=== PATIENT | male | born 1990 | race Hispanic/Latino ===

== ENCOUNTER 2020-12-29 01:08 | Inpatient (IN) | payer OTHER ==
[2020-12-29] VITALS (79 sets, daily range): BP systolic 110–154; BP diastolic 64–99
[~2020-12-29] VITALS: Ht 175.3 cm; Wt 84.0 kg
[2020-12-29] MEDS ORDERED: FENTANYL CITRATE PF 50 MCG/1 ML 2ML VIAL ONE (01:18)
[2020-12-29] MEDS ORDERED: IOHEXOL-350 50ML VIAL IV ONE (01:18)
[2020-12-29] MEDS ORDERED: MIDAZOLAM HCL 1 MG/ML 2ML VIAL ONE (01:18)
[2020-12-29] MEDS ORDERED: LIDOCAINE HCL 2% 20ML ONE ×2 (01:18→02:19)
[2020-12-29] MEDS ORDERED: HEPARIN SODIUM 1000UNIT/ML 10ML VIAL ONE (01:18)
[2020-12-29] MEDS ORDERED: IOHEXOL-350 75 ML VIAL IV ONE (01:18)
[2020-12-29] MEDS ORDERED: NITROGLYCERIN 2 MG/VIAL VIAL IV ONE (01:19)
[2020-12-29] MEDS ORDERED: BIVALIRUDIN 250 MG/VIAL IV ONE (01:41)
[2020-12-29] MEDS ORDERED: DEXTROSE 50%-WATER 50 ML DISP.SYRIN IV PRN (03:15)
[2020-12-29] MEDS ORDERED: SODIUM CHLORIDE 0.9% 1000ML 1,000 ML IV SCH (03:15)
[2020-12-29] MEDS ORDERED: ONDANSETRON HCL 4 MG/2 ML VIAL IV PRN (03:15)
[2020-12-29] MEDS ORDERED: GLUCAGON 1MG KIT 1 MG ML IM PRN (03:15)
[2020-12-29] MEDS ORDERED: MORPHINE SULFATE 2 MG/ML 1ML SYG IVP PRN (04:15)
[2020-12-29 04:35] LABS: BASOPHILS % (AUTO) 0.1 % (0.0-5.0); HEMATOCRIT 44.1 % (42-54); LYMPHOCYTES % (AUTO) 12.7 % (21.0-51.0); MEAN CORPUSCULAR HEMOGLOBIN 30.8 pg (27.0-33.0); MEAN CORPUSCULAR HGB CONC 34.7 g/dL (32.0-36.0); MEAN CORPUSCULAR VOLUME 88.9 fL (79-99); MONOCYTES % (AUTO) 4.2 % (3.0-13.0); NEUTROPHILS % (AUTO) 82.6 % (40.0-77.0); PLATELET COUNT (AUTO) 295 K/uL (130-400); RED BLOOD CELL COUNT(AUTO) 4.96 MIL/uL (4.50-6.20); RED CELL DISTRIBUTION WIDTH 12.4 % (11.0-15.5); WHITE BLOOD COUNT (AUTO) 15.4 K/uL (4.8-10.8)
[2020-12-29] MEDS ORDERED: MORPHINE SULFATE 2 MG/ML 1ML SYG ONE (04:46)
[2020-12-29 04:55] LABS: INR 1.05 (0.85-1.15); PROTHROMBIN TIME 10.9 SEC (9.6-11.6)
[2020-12-29 05:03] LABS: B-TYPE NATRIURETIC PEPTIDE 16 pg/mL (0-100)
[2020-12-29 05:10] LABS: ALBUMIN 3.4 g/dL (3.5-5.0); BILIRUBIN,TOTAL 0.5 mg/dL (0.2-1.0); MAGNESIUM 1.8 mg/dL (1.80-2.40); POTASSIUM 4.1 mmol/L (3.5-5.1); TOTAL PROTEIN, SERUM 6.2 g/dL (6.0-8.3)
[2020-12-29 05:26] LABS: CREATININE 0.9 mg/dL (0.5-1.5)
[2020-12-29 05:33] LABS: TROPONIN I 25.5 ng/mL (0.00-0.06)
[2020-12-29] MEDS: SODIUM CHLORIDE 0.9% 1000ML 1,000 ML IV SCH ×3 (05:38→15:59)
[2020-12-29 07:13] LABS: BASOPHILS % (AUTO) 0.1 % (0.0-5.0); EOSINOPHILS % (AUTO) 0.1 % (0.0-8.0); HEMATOCRIT 40.5 % (42-54); LYMPHOCYTES % (AUTO) 13.2 % (21.0-51.0); MEAN CORPUSCULAR HEMOGLOBIN 30.9 pg (27.0-33.0); MEAN CORPUSCULAR HGB CONC 35.1 g/dL (32.0-36.0); MEAN CORPUSCULAR VOLUME 88.2 fL (79-99); MONOCYTES % (AUTO) 7.6 % (3.0-13.0); NEUTROPHILS % (AUTO) 78.5 % (40.0-77.0); PLATELET COUNT (AUTO) 296 K/uL (130-400); RED BLOOD CELL COUNT(AUTO) 4.59 MIL/uL (4.50-6.20); RED CELL DISTRIBUTION WIDTH 12.4 % (11.0-15.5); WHITE BLOOD COUNT (AUTO) 15.4 K/uL (4.8-10.8)
[2020-12-29 07:30] LABS: HEMOGLOBIN A1C 5.9 % (4.0-6.0)
[2020-12-29] MEDS: INSULIN HUMULIN R 100 UNIT/ML 3ML SQ SCH ×4 (07:30→20:24)
[2020-12-29 07:46] LABS: ALBUMIN 3.1 g/dL (3.5-5.0); BILIRUBIN,TOTAL 0.6 mg/dL (0.2-1.0); CREATININE 0.7 mg/dL (0.5-1.5); MAGNESIUM 1.8 mg/dL (1.80-2.40); POTASSIUM 3.6 mmol/L (3.5-5.1); THYROID STIMULATING HORMONE 0.36 uIU/mL (0.36-3.74); TOTAL PROTEIN, SERUM 5.4 g/dL (6.0-8.3)
[2020-12-29] MEDS: FAMOTIDINE/PF 20 MG/2 ML VIAL IV SCH ×2 (08:57→20:23)
[2020-12-29] MEDS ORDERED: MORPHINE SULFATE 2 MG/ML 1ML SYG IM PRN (10:00)
[2020-12-29] MEDS ORDERED: HEPARIN 25000 UNITS/250 ML D5W 250 ML IV SCH (11:10)
[2020-12-29] MEDS ORDERED: PHARMACY COMMUNICATION MISC SCH (11:45)
[2020-12-29] MEDS ORDERED: D10W IJ SCH ×2 (11:45)
[2020-12-29] MEDS ORDERED: HEPARIN IJ SCH ×2 (11:45)
[2020-12-29] MEDS: ACETAMINOPHEN EXTRA STRENGTH 500 MG TABLET PO PRN ×2 (11:53→19:25)
[2020-12-29 13:25] LABS: PARTIAL THROMBOPLASTIN TIME 46.3 SEC (26.3-35.5); PROTHROMBIN TIME 10.4 SEC (9.6-11.6)
[2020-12-29] MEDS: CYCLOBENZAPRINE HCL 10 MG TABLET PO SCH ×2 (14:08→20:23)
[2020-12-29 18:35] LABS: HEMATOCRIT 38.8 % (42-54)
[2020-12-29 18:49] LABS: PARTIAL THROMBOPLASTIN TIME 50.4 SEC (26.3-35.5); PROTHROMBIN TIME 10.4 SEC (9.6-11.6)
[2020-12-29] MEDS ORDERED: HEPARIN 25000 UNITS/250 ML D5W 250 ML IV ONE (19:11)
[2020-12-29] MEDS: ATORVASTATIN CALCIUM 20 MG TABLET PO SCH (20:23)
[2020-12-29] MEDS: METOPROLOL TARTRATE 25 MG TAB PO SCH (20:24)
[2020-12-29] MEDS: LISINOPRIL 5 MG TABLET PO SCH (20:24)
[2020-12-30] VITALS (53 sets, daily range): BP systolic 102–127; BP diastolic 49–82
[2020-12-30] MEDS: ACETAMINOPHEN EXTRA STRENGTH 500 MG TABLET PO PRN (03:22)
[2020-12-30 03:35] LABS: BASOPHILS % (AUTO) 0.2 % (0.0-5.0); EOSINOPHILS % (AUTO) 0.4 % (0.0-8.0); HEMATOCRIT 42.8 % (42-54); LYMPHOCYTES % (AUTO) 15.3 % (21.0-51.0); MEAN CORPUSCULAR HGB CONC 33.2 g/dL (32.0-36.0); MEAN CORPUSCULAR VOLUME 90.3 fL (79-99); MONOCYTES % (AUTO) 9.5 % (3.0-13.0); NEUTROPHILS % (AUTO) 74.3 % (40.0-77.0); PLATELET COUNT (AUTO) 248 K/uL (130-400); RED BLOOD CELL COUNT(AUTO) 4.74 MIL/uL (4.50-6.20); RED CELL DISTRIBUTION WIDTH 12.5 % (11.0-15.5); WHITE BLOOD COUNT (AUTO) 15.1 K/uL (4.8-10.8)
[2020-12-30 03:51] LABS: ALBUMIN 3.3 g/dL (3.5-5.0); BILIRUBIN,TOTAL 0.3 mg/dL (0.2-1.0); CREATININE 0.7 mg/dL (0.5-1.5); POTASSIUM 3.9 mmol/L (3.5-5.1); TOTAL PROTEIN, SERUM 6.2 g/dL (6.0-8.3)
[2020-12-30] MEDS: INSULIN HUMULIN R 100 UNIT/ML 3ML SQ SCH ×4 (07:30→21:00)
[2020-12-30] MEDS: LISINOPRIL 5 MG TABLET PO SCH ×2 (09:00→21:21)
[2020-12-30] MEDS: METOPROLOL TARTRATE 25 MG TAB PO SCH ×3 (09:00→21:20)
[2020-12-30] MEDS: FAMOTIDINE/PF 20 MG/2 ML VIAL IV SCH ×2 (09:25→21:19)
[2020-12-30] MEDS: CYCLOBENZAPRINE HCL 10 MG TABLET PO SCH (09:25)
[2020-12-30] MEDS: ASPIRIN 81MG TAB.CHEW PO SCH (09:25)
[2020-12-30] MEDS ORDERED: ACET-2247 PO (12:06)
[2020-12-30] MEDS: SODIUM CHLORIDE 0.9% 1000ML 1,000 ML IV SCH (17:05)
[2020-12-30] MEDS: HEPARIN 25000 UNITS/250 ML D5W 250 ML IV SCH (17:09)
[2020-12-30 17:50] LABS: INR 0.98 (0.85-1.15); PARTIAL THROMBOPLASTIN TIME 42.1 SEC (26.3-35.5); PROTHROMBIN TIME 10.2 SEC (9.6-11.6)
[2020-12-30] MEDS: ATORVASTATIN CALCIUM 20 MG TABLET PO SCH (21:19)
[2020-12-30] MEDS: HEPARIN SODIUM 5000 UNIT/ML 25,000 UNIT in DEXTROSE 5%-WATER 495 ML IJ SCH (21:32)
[2020-12-30] MEDS: CYCLOBENZAPRINE HCL 10 MG TABLET PO PRN (23:53)
[2020-12-31] VITALS (71 sets, daily range): BP systolic 91–125; BP diastolic 50–80
[2020-12-31 00:15] LABS: INR 0.98 (0.85-1.15); PARTIAL THROMBOPLASTIN TIME 52.8 SEC (26.3-35.5); PROTHROMBIN TIME 10.2 SEC (9.6-11.6)
[2020-12-31] MEDS ORDERED: NITROGLYCERIN 0.4 MG SL TAB SL ONE (00:18)
[2020-12-31] MEDS: NITROGLYCERIN 0.4 MG SL TAB SL PRN ×2 (01:19→10:03)
[2020-12-31] MEDS: SODIUM CHLORIDE 0.9% 1000ML 1,000 ML IV SCH ×2 (04:37→22:55)
[2020-12-31 05:57] LABS: BASOPHILS % (AUTO) 0.3 % (0.0-5.0); EOSINOPHILS % (AUTO) 0.6 % (0.0-8.0); HEMATOCRIT 38.1 % (42-54); LYMPHOCYTES % (AUTO) 20.6 % (21.0-51.0); MEAN CORPUSCULAR HEMOGLOBIN 30.6 pg (27.0-33.0); MEAN CORPUSCULAR HGB CONC 33.9 g/dL (32.0-36.0); MEAN CORPUSCULAR VOLUME 90.3 fL (79-99); MONOCYTES % (AUTO) 11.7 % (3.0-13.0); NEUTROPHILS % (AUTO) 66.4 % (40.0-77.0); PLATELET COUNT (AUTO) 181 K/uL (130-400); RED BLOOD CELL COUNT(AUTO) 4.22 MIL/uL (4.50-6.20); RED CELL DISTRIBUTION WIDTH 12.6 % (11.0-15.5); WHITE BLOOD COUNT (AUTO) 15.5 K/uL (4.8-10.8)
[2020-12-31 06:11] LABS: ALBUMIN 2.9 g/dL (3.5-5.0); BILIRUBIN,TOTAL 0.7 mg/dL (0.2-1.0); CREATININE 0.7 mg/dL (0.5-1.5); INR 0.99 (0.85-1.15); PARTIAL THROMBOPLASTIN TIME 57.9 SEC (26.3-35.5); POTASSIUM 3.7 mmol/L (3.5-5.1); PROTHROMBIN TIME 10.3 SEC (9.6-11.6)
[2020-12-31] MEDS: INSULIN HUMULIN R 100 UNIT/ML 3ML SQ SCH ×4 (06:28→20:21)
[2020-12-31] MEDS: FAMOTIDINE/PF 20 MG/2 ML VIAL IV SCH ×2 (08:54→21:02)
[2020-12-31] MEDS: LISINOPRIL 5 MG TABLET PO SCH ×2 (08:56→21:02)
[2020-12-31] MEDS: METOPROLOL TARTRATE 25 MG TAB PO SCH ×2 (08:56→21:02)
[2020-12-31] MEDS: ASPIRIN 81MG TAB.CHEW PO SCH (08:56)
[2020-12-31] MEDS: ATORVASTATIN CALCIUM 20 MG TABLET PO SCH (21:02)
[2020-12-31] MEDS: HEPARIN SODIUM 5000 UNIT/ML 25,000 UNIT in DEXTROSE 5%-WATER 495 ML IJ SCH (22:12)
[2021-01-01] VITALS (35 sets, daily range): BP systolic 87–170; BP diastolic 46–73
[2021-01-01] MEDS: CYCLOBENZAPRINE HCL 10 MG TABLET PO PRN ×2 (03:11→06:19)
[2021-01-01] MEDS: HEPARIN 25000 UNITS/250 ML D5W 250 ML IV SCH (03:14)
[2021-01-01 04:09] LABS: ABG BASE EXCESS -0.7 mmol/L (-2.0-3.0); ABG HCO3 23.3 mmol/L (21.0-28.0); ABG OXYGEN SATURATION 95.3 % (95.0-99.0); ABG PCO2 37 mmHg (35-48)
[2021-01-01] MEDS: INSULIN HUMULIN R 100 UNIT/ML 3ML SQ SCH ×4 (06:32→20:52)
[2021-01-01 06:44] LABS: BASOPHILS % (AUTO) 0.2 % (0.0-5.0); EOSINOPHILS % (AUTO) 1.4 % (0.0-8.0); HEMATOCRIT 39.1 % (42-54); LYMPHOCYTES % (AUTO) 22.2 % (21.0-51.0); MEAN CORPUSCULAR HGB CONC 32.5 g/dL (32.0-36.0); MEAN CORPUSCULAR VOLUME 92.4 fL (79-99); MONOCYTES % (AUTO) 10.1 % (3.0-13.0); NEUTROPHILS % (AUTO) 65.5 % (40.0-77.0); PLATELET COUNT (AUTO) 187 K/uL (130-400); RED BLOOD CELL COUNT(AUTO) 4.23 MIL/uL (4.50-6.20); RED CELL DISTRIBUTION WIDTH 12.4 % (11.0-15.5); WHITE BLOOD COUNT (AUTO) 14.5 K/uL (4.8-10.8)
[2021-01-01 06:55] LABS: INR 0.98 (0.85-1.15); PROTHROMBIN TIME 10.2 SEC (9.6-11.6)
[2021-01-01 07:11] LABS: ALBUMIN 2.9 g/dL (3.5-5.0); BILIRUBIN,TOTAL 0.8 mg/dL (0.2-1.0); CREATININE 0.7 mg/dL (0.5-1.5); POTASSIUM 4.4 mmol/L (3.5-5.1); TOTAL PROTEIN, SERUM 6.5 g/dL (6.0-8.3)
[2021-01-01 07:12] LABS: HEMOGLOBIN A1C 5.6 % (4.0-6.0)
[2021-01-01 07:20] LABS: B-TYPE NATRIURETIC PEPTIDE 122 pg/mL (0-100)
[2021-01-01] MEDS: LISINOPRIL 5 MG TABLET PO SCH (09:00)
[2021-01-01] MEDS: ASPIRIN 81MG TAB.CHEW PO SCH (09:00)
[2021-01-01] MEDS ORDERED: METOPROLOL TARTRATE 25 MG TAB PO SCH (09:00)
[2021-01-01] MEDS: FAMOTIDINE/PF 20 MG/2 ML VIAL IV SCH ×3 (10:10→21:00)
[2021-01-01] MEDS ORDERED: CEFAZOLIN SODIUM 1 GM VIAL IVP PRN (10:15)
[2021-01-01] MEDS ORDERED: AMINOCAPROIC ACID 15,000 MG in SODIUM CHLORIDE 0.9% 500ML 420 ML IV PRN (10:45)
[2021-01-01] MEDS ORDERED: EPINEPHRINE 10 MG in SODIUM CHLORIDE 0.9% 240 ML IV PRN (10:45)
[2021-01-01] MEDS ORDERED: NOREPINEPHRINE BITARTRATE 8 MG in DEXTROSE 5%-WATER 250 ML IV PRN (10:45)
[2021-01-01] MEDS ORDERED: LIDOCAINE PF 2% 5ML ABBOJECT ONE (12:56)
[2021-01-01] MEDS ORDERED: EPINEPHRINE 1 MG/ML AMPULE ONE (12:56)
[2021-01-01] MEDS ORDERED: ESMOLOL HCL 10 MG/ML 10 ML VIAL ONE (12:56)
[2021-01-01] MEDS ORDERED: HEPARIN SODIUM 1000UNIT/ML 10ML VIAL ONE ×3 (12:56→14:01)
[2021-01-01] MEDS ORDERED: FENTANYL CITRATE PF 50 MCG/1 ML 20ML VIAL IJ ONE (12:57)
[2021-01-01] MEDS ORDERED: MIDAZOLAM HCL 1 MG/ML 2ML VIAL ONE (12:57)
[2021-01-01] MEDS ORDERED: PROPOFOL 10 MG/ML 20ML VIAL IV ONE (12:57)
[2021-01-01] MEDS ORDERED: AMINOCAPROIC ACID 250 MG/ML 20 ML VIAL ONE (12:57)
[2021-01-01] MEDS ORDERED: NOREPINEPHRINE BITARTRATE 1 MG/1 ML ML IV ONE (12:57)
[2021-01-01] MEDS ORDERED: ROCURONIUM 10MG/1ML SYR 10 MG/ML ML ONE (12:57)
[2021-01-01] MEDS ORDERED: NITROGLYCERIN 50 MG/D5% WATER 1 BOT ONE (12:58)
[2021-01-01] MEDS ORDERED: KETAMINE 50MG/ML SYRINGE 50 MG/ML DISP.SYRIN IV ONE (12:58)
[2021-01-01] MEDS ORDERED: CEFAZOLIN SODIUM 1 GM VIAL ONE ×2 (13:41→13:55)
[2021-01-01 13:51] LABS: ABG BASE EXCESS -3.8 mmol/L (-2.0-3.0); ABG HCO3 21.1 mmol/L (21.0-28.0); ABG OXYGEN SATURATION 98.9 % (95.0-99.0); ABG PCO2 38 mmHg (35-48)
[2021-01-01] MEDS ORDERED: PAPAVERINE HCL 30 MG/ML 2ML VIAL ONE (13:56)
[2021-01-01] MEDS ORDERED: OCTYL 2-CYANOACRYLATE 1 EACH TP ONE (13:56)
[2021-01-01] MEDS ORDERED: CITRIC ACID/SODIUM CITRATE 30 ML UDCUP ONE (15:00)
[2021-01-01 15:14] LABS: ABG BASE EXCESS -2.5 mmol/L (-2.0-3.0); ABG HCO3 21.8 mmol/L (21.0-28.0); ABG PCO2 36 mmHg (35-48)
[2021-01-01] MEDS ORDERED: VASOPRESSIN 20 UNITS/ML 1ML VIAL ONE (15:23)
[2021-01-01] MEDS ORDERED: PROTAMINE SULFATE 10 MG/ML 25ML VIAL IV ONE (15:37)
[2021-01-01 15:49] LABS: ABG BASE EXCESS -4.9 mmol/L (-2.0-3.0); ABG OXYGEN SATURATION 98.9 % (95.0-99.0); ABG PCO2 36 mmHg (35-48)
[2021-01-01] MEDS ORDERED: EPHEDRINE SULFATE 50 MG/ML AMPULE ONE (16:15)
[2021-01-01 16:40] LABS: ABG BASE EXCESS -0.6 mmol/L (-2.0-3.0); ABG HCO3 24.6 mmol/L (21.0-28.0); ABG OXYGEN SATURATION 98.1 % (95.0-99.0); ABG PCO2 43 mmHg (35-48)
[2021-01-01] MEDS ORDERED: MORPHINE SULFATE 2 MG/ML 1ML SYG IM SCH (16:45)
[2021-01-01] MEDS ORDERED: INSULIN REGULAR, HUMAN 3ML 100 UNIT in SODIUM CHLORIDE 0.9% 99 ML IV SCH ×2 (17:00)
[2021-01-01] MEDS ORDERED: MAGNESIUM 2GM PREMIX 50ML 50 ML IV PRN (17:00)
[2021-01-01] MEDS ORDERED: MORPHINE SULFATE 2 MG/ML 1ML SYG IV PRN (17:00)
[2021-01-01] MEDS ORDERED: FENTANYL 2500MCG+NS 250ML 250 ML IV SCH (17:00)
[2021-01-01] MEDS ORDERED: FENTANYL CITRATE PF 50 MCG/1 ML 2ML VIAL IVP ONE (17:00)
[2021-01-01] MEDS ORDERED: DEXTROSE 50%-WATER 50 ML DISP.SYRIN IV PRN (17:00)
[2021-01-01] MEDS ORDERED: MORPHINE SULFATE 4 MG/1ML SYG IV PRN (17:00)
[2021-01-01] MEDS ORDERED: NITROGLYCERIN 50 MG/D5% WATER 250 BOT IV SCH (17:00)
[2021-01-01] MEDS ORDERED: ACETAMINOPHEN 650 MG SUPPOSITORY RC PRN (17:00)
[2021-01-01] MEDS ORDERED: NOREPINEPHRINE 4MG/NS 250ML 250 ML IV PRN (17:00)
[2021-01-01] MEDS ORDERED: AMINOCAPROIC ACID 15,000 MG in SODIUM CHLORIDE 0.9% 250 ML IV SCH (17:00)
[2021-01-01] MEDS ORDERED: EPINEPHRINE 10 MG in DEXTROSE 5%-WATER 250 ML IV PRN (17:00)
[2021-01-01] MEDS ORDERED: ALBUMIN (HUMAN) 5% 250 ML IV PRN (17:00)
[2021-01-01] MEDS ORDERED: SODIUM CHLORIDE 0.9% 1000ML 1,000 ML IV SCH (17:00)
[2021-01-01] MEDS ORDERED: PROPOFOL 1000 MG/100 ML 100 ML IV PRN (17:00)
[2021-01-01] MEDS ORDERED: SODIUM CHLORIDE 0.9% 500ML 500 ML IV SCH (17:00)
[2021-01-01] MEDS ORDERED: GLUCAGON 1MG KIT 1 MG ML IM PRN (17:00)
[2021-01-01] MEDS ORDERED: ONDANSETRON HCL 4 MG/2 ML VIAL IV PRN (17:00)
[2021-01-01] MEDS ORDERED: POTASSIUM PHOS 15 mMOL+NS250ML 250 ML IV PRN (17:00)
[2021-01-01] MEDS ORDERED: SODIUM CHLORIDE 0.9% 10 ML VIAL IVP PRN (17:00)
[2021-01-01 17:12] LABS: HEMATOCRIT 29.2 % (42-54); MEAN CORPUSCULAR HEMOGLOBIN 30.5 pg (27.0-33.0); MEAN CORPUSCULAR HGB CONC 33.6 g/dL (32.0-36.0); RED BLOOD CELL COUNT(AUTO) 3.21 MIL/uL (4.50-6.20); RED CELL DISTRIBUTION WIDTH 12.2 % (11.0-15.5); WHITE BLOOD COUNT (AUTO) 27.8 K/uL (4.8-10.8)
[2021-01-01 17:33] LABS: INR 1.03 (0.85-1.15); PROTHROMBIN TIME 11.2 SEC (9.6-11.6)
[2021-01-01] MEDS ORDERED: INSULIN REGULAR, HUMAN 3ML 100 UNIT in SODIUM CHLORIDE 0.9% 99 ML IV PRN ×2 (17:45)
[2021-01-01 17:46] LABS: CREATININE 0.8 mg/dL (0.5-1.5); MAGNESIUM 1.4 mg/dL (1.80-2.40); PHOSPHORUS 4.5 mg/dL (2.5-4.9); POTASSIUM 3.9 mmol/L (3.5-5.1)
[2021-01-01 17:56] LABS: ABG HCO3 24.5 mmol/L (21.0-28.0); ABG PCO2 39 mmHg (35-48)
[2021-01-01] MEDS ORDERED: MORPHINE SULFATE 2 MG/ML 1ML SYG IV SCH (18:00)
[2021-01-01 18:01] LABS: HEMATOCRIT 31.7 % (42-54); MEAN CORPUSCULAR HEMOGLOBIN 29.8 pg (27.0-33.0); MEAN CORPUSCULAR HGB CONC 33.1 g/dL (32.0-36.0); MEAN CORPUSCULAR VOLUME 90.1 fL (79-99); RED BLOOD CELL COUNT(AUTO) 3.52 MIL/uL (4.50-6.20); RED CELL DISTRIBUTION WIDTH 12.2 % (11.0-15.5)
[2021-01-01 18:11] LABS: CREATININE 0.9 mg/dL (0.5-1.5); MAGNESIUM 1.6 mg/dL (1.80-2.40); PARTIAL THROMBOPLASTIN TIME 21.1 SEC (26.3-35.5); POTASSIUM 3.9 mmol/L (3.5-5.1)
[2021-01-01] MEDS: TRAMADOL HCL 50 MG TABLET PO PRN ×2 (18:16→23:29)
[2021-01-01] MEDS: POTASSIUM CHLORIDE 20MEQ/100ML 100 ML IV PRN ×2 (18:17→21:22)
[2021-01-01] MEDS ORDERED: FENTANYL CITRATE PF 50 MCG/1 ML 2ML VIAL IVP SCH (18:49)
[2021-01-01 19:27] LABS: ABG BASE EXCESS -2.8 mmol/L (-2.0-3.0); ABG HCO3 21.4 mmol/L (21.0-28.0); ABG OXYGEN SATURATION 98.2 % (95.0-99.0); ABG PCO2 35 mmHg (35-48)
[2021-01-01] MEDS ORDERED: NOREPINEPHRINE 8MG/NS 250 ML 250 ML IV ONE (19:28)
[2021-01-01] MEDS: SODIUM BICARB 50MEQ 50ML VIAL IV PRN ×2 (19:39→19:40)
[2021-01-01] MEDS ORDERED: PHARMACY COMMUNICATION MISC SCH ×2 (19:45→20:00)
[2021-01-01] MEDS: CALCIUM GLUCONATE 1 GM in SODIUM CHLORIDE 0.9% 50 ML IV PRN ×2 (20:49→21:22)
[2021-01-01] MEDS: ATORVASTATIN CALCIUM 20 MG TABLET PO SCH (21:00)
[2021-01-01 21:13] LABS: ABG BASE EXCESS 2.1 mmol/L (-2.0-3.0); ABG HCO3 26.4 mmol/L (21.0-28.0); ABG OXYGEN SATURATION 97.3 % (95.0-99.0); ABG PCO2 40 mmHg (35-48)
[2021-01-01] MEDS ORDERED: ATORVASTATIN CALCIUM 40 MG TABLET ONE (21:15)
[2021-01-01] MEDS: ACETAMINOPHEN 325 MG TAB PO PRN (21:18)
[2021-01-01] MEDS: CEFAZOLIN SODIUM 1 GM VIAL IV SCH (21:51)
[2021-01-02] VITALS (23 sets, daily range): BP systolic 91–128; BP diastolic 43–86
[2021-01-02] MEDS: ACETAMINOPHEN 325 MG TAB PO PRN (01:21)
[2021-01-02] MEDS: INSULIN HUMULIN R 100 UNIT/ML 3ML SQ SCH ×3 (02:20→19:46)
[2021-01-02 04:07] LABS: ABG HCO3 27.5 mmol/L (21.0-28.0); ABG OXYGEN SATURATION 96.8 % (95.0-99.0); ABG PCO2 42 mmHg (35-48)
[2021-01-02 04:11] LABS: HEMATOCRIT 27.5 % (42-54); MEAN CORPUSCULAR HEMOGLOBIN 30.4 pg (27.0-33.0); MEAN CORPUSCULAR HGB CONC 33.5 g/dL (32.0-36.0); MEAN CORPUSCULAR VOLUME 90.8 fL (79-99); RED BLOOD CELL COUNT(AUTO) 3.03 MIL/uL (4.50-6.20); RED CELL DISTRIBUTION WIDTH 12.4 % (11.0-15.5); WHITE BLOOD COUNT (AUTO) 19.2 K/uL (4.8-10.8)
[2021-01-02] MEDS: POTASSIUM CHLORIDE 20MEQ/100ML 100 ML IV PRN (04:16)
[2021-01-02 04:24] LABS: CREATININE 0.8 mg/dL (0.5-1.5); MAGNESIUM 2.1 mg/dL (1.80-2.40); POTASSIUM 4.1 mmol/L (3.5-5.1); PROTHROMBIN TIME 10.9 SEC (9.6-11.6)
[2021-01-02] MEDS: CALCIUM GLUCONATE 1 GM in SODIUM CHLORIDE 0.9% 50 ML IV PRN (04:30)
[2021-01-02] MEDS: HEPARIN SODIUM 5000 UNIT/ML 25,000 UNIT in DEXTROSE 5%-WATER 495 ML IJ SCH (05:20)
[2021-01-02] MEDS: TRAMADOL HCL 50 MG TABLET PO PRN ×4 (05:35→20:50)
[2021-01-02] MEDS: CEFAZOLIN SODIUM 1 GM VIAL IV SCH ×2 (06:10→15:34)
[2021-01-02] MEDS: FAMOTIDINE/PF 20 MG/2 ML VIAL IV SCH ×4 (08:47→20:42)
[2021-01-02] MEDS: METOPROLOL TARTRATE 25 MG TAB PO SCH (19:48)
[2021-01-02] MEDS: ATORVASTATIN CALCIUM 20 MG TABLET PO SCH (20:43)
[2021-01-03] VITALS (28 sets, daily range): BP systolic 74–226; BP diastolic 37–223
[2021-01-03 03:49] LABS: HEMATOCRIT 24.4 % (42-54); MEAN CORPUSCULAR HEMOGLOBIN 30.4 pg (27.0-33.0); MEAN CORPUSCULAR HGB CONC 33.6 g/dL (32.0-36.0); MEAN CORPUSCULAR VOLUME 90.4 fL (79-99); RED BLOOD CELL COUNT(AUTO) 2.7 MIL/uL (4.50-6.20); RED CELL DISTRIBUTION WIDTH 12.6 % (11.0-15.5); WHITE BLOOD COUNT (AUTO) 13.6 K/uL (4.8-10.8)
[2021-01-03 03:59] LABS: CREATININE 0.6 mg/dL (0.5-1.5); POTASSIUM 4.1 mmol/L (3.5-5.1)
[2021-01-03] MEDS: TRAMADOL HCL 50 MG TABLET PO PRN ×2 (05:10→16:12)
[2021-01-03] MEDS: INSULIN HUMULIN R 100 UNIT/ML 3ML SQ SCH ×3 (05:10→21:00)
[2021-01-03] MEDS ORDERED: METOPROLOL TARTRATE 25 MG TAB PO SCH (08:30)
[2021-01-03] MEDS: FAMOTIDINE 20MG TAB 20 MG TAB PO SCH ×2 (08:52→20:33)
[2021-01-03] MEDS: FAMOTIDINE/PF 20 MG/2 ML VIAL IV SCH ×2 (09:00→19:42)
[2021-01-03] MEDS: METOPROLOL TARTRATE 25 MG TAB PO SCH ×3 (09:00→21:00)
[2021-01-03] MEDS ORDERED: ALBUMIN (HUMAN) 5% 250 ML IV ONE (11:33)
[2021-01-03] MEDS ORDERED: ALBUMIN (HUMAN) 5% 250 ML IV PRN (17:15)
[2021-01-03] MEDS ORDERED: PHARMACY COMMUNICATION MISC SCH (17:30)
[2021-01-03] MEDS: ATORVASTATIN CALCIUM 20 MG TABLET PO SCH (20:34)
[2021-01-04] VITALS (13 sets, daily range): BP systolic 92–118; BP diastolic 42–67
[2021-01-04] MEDS: TRAMADOL HCL 50 MG TABLET PO PRN ×2 (00:33→11:08)
[2021-01-04 05:27] LABS: HEMATOCRIT 24.7 % (42-54); MEAN CORPUSCULAR VOLUME 91.1 fL (79-99); RED BLOOD CELL COUNT(AUTO) 2.71 MIL/uL (4.50-6.20); RED CELL DISTRIBUTION WIDTH 12.3 % (11.0-15.5); WHITE BLOOD COUNT (AUTO) 11.5 K/uL (4.8-10.8)
[2021-01-04 05:39] LABS: CREATININE 0.7 mg/dL (0.5-1.5); POTASSIUM 4.4 mmol/L (3.5-5.1)
[2021-01-04] MEDS: INSULIN HUMULIN R 100 UNIT/ML 3ML SQ SCH (06:52)
[2021-01-04] MEDS: METOPROLOL TARTRATE 25 MG TAB PO SCH ×2 (08:53→20:33)
[2021-01-04] MEDS: ASPIRIN 325MG EC TAB 325 MG TABLET.DR PO SCH (08:53)
[2021-01-04] MEDS: FAMOTIDINE 20MG TAB 20 MG TAB PO SCH ×2 (08:53→20:34)
[2021-01-04] MEDS: FAMOTIDINE/PF 20 MG/2 ML VIAL IV SCH (08:53)
[2021-01-04 09:08] LABS: MAGNESIUM 2.1 mg/dL (1.80-2.40); PHOSPHORUS 3.9 mg/dL (2.5-4.9)
[2021-01-04] MEDS: ATORVASTATIN CALCIUM 20 MG TABLET PO SCH (20:33)
[2021-01-05] MEDS: TRAMADOL HCL 50 MG TABLET PO PRN (01:37)
[2021-01-05 03:00] VITALS: BP 101/61
[2021-01-05 04:26] LABS: HEMATOCRIT 27.3 % (42-54); MEAN CORPUSCULAR HEMOGLOBIN 30.3 pg (27.0-33.0); MEAN CORPUSCULAR HGB CONC 34.1 g/dL (32.0-36.0); MEAN CORPUSCULAR VOLUME 88.9 fL (79-99); NUCLEATED RED BLOOD CELLS 0.2 % (0.0-0.19); RED BLOOD CELL COUNT(AUTO) 3.07 MIL/uL (4.50-6.20); RED CELL DISTRIBUTION WIDTH 12.3 % (11.0-15.5); WHITE BLOOD COUNT (AUTO) 12.9 K/uL (4.8-10.8)
[2021-01-05 04:34] LABS: CREATININE 0.8 mg/dL (0.5-1.5); POTASSIUM 4.3 mmol/L (3.5-5.1)
[2021-01-05] MEDS: ASPIRIN 325MG EC TAB 325 MG TABLET.DR PO SCH (08:16)
[2021-01-05] MEDS: FAMOTIDINE 20MG TAB 20 MG TAB PO SCH (08:16)
[2021-01-05] MEDS: METOPROLOL TARTRATE 25 MG TAB PO SCH (08:16)
[2021-01-05 08:22] VITALS: BP 106/70
[2021-01-05 12:07] VITALS: BP 97/59
[2021-01-05] MEDS ORDERED: METO25 PO (14:34)
[2021-01-05] MEDS ORDERED: FAMO20TA8 PO (14:34)
[2021-01-05] MEDS ORDERED: ATOR20TA65 PO (14:34)
[2021-01-05] MEDS ORDERED: ASPI-891 PO (14:34)
== END 2021-01-05 15:30 | disposition home or self-care (01) | DRG 215 ==
LOC: 2AH 01:24 → 2CH 01:47 → 2CV 01-01 13:56 → 2CH 01-02 18:28 → 4DH 01-04 10:56 → 4CH 01-04 11:08
PROVIDERS: ADMIT Family Medicine; ATTEND Family Medicine
PROC: 02HA3RZ Insertion of Short-term External Heart Assist System into Heart, Percutaneous Approach (ICD-10-PCS; principal; 2020-12-29)
PROC: 5A0221D Assistance with Cardiac Output using Impeller Pump, Continuous (ICD-10-PCS; 2020-12-29)
PROC: B2111ZZ Fluoroscopy of Multiple Coronary Arteries using Low Osmolar Contrast (ICD-10-PCS; 2020-12-29)
PROC: B2151ZZ Fluoroscopy of Left Heart using Low Osmolar Contrast (ICD-10-PCS; 2020-12-29)
PROC: 4A023N7 Measurement of Cardiac Sampling and Pressure, Left Heart, Percutaneous Approach (ICD-10-PCS; 2020-12-29)
PROC: B2131ZZ Fluoroscopy of Multiple Coronary Artery Bypass Grafts using Low Osmolar Contrast (ICD-10-PCS; 2020-12-29)
PROC: 02100Z9 Bypass Coronary Artery, One Artery from Left Internal Mammary, Open Approach (ICD-10-PCS; 2021-01-01)
PROC: 021009W Bypass Coronary Artery, One Artery from Aorta with Autologous Venous Tissue, Open Approach (ICD-10-PCS; 2021-01-01)
PROC: 06BQ4ZZ Excision of Left Saphenous Vein, Percutaneous Endoscopic Approach (ICD-10-PCS; 2021-01-01)
PROC: 03B Upper Arteries, Excision (ICD-10-PCS; 2021-01-01)
PROC: 0PS004Z Reposition Sternum with Internal Fixation Device, Open Approach (ICD-10-PCS; 2021-01-01)
DX: I21.19 ST elevation (STEMI) myocardial infarction involving other coronary artery of inferior wall (principal); I50.41 Acute combined systolic (congestive) and diastolic (congestive) heart failure; R57.0 Cardiogenic shock; F14.129 Cocaine abuse with intoxication, unspecified; F17.210 Nicotine dependence, cigarettes, uncomplicated; D72.829 Elevated white blood cell count, unspecified; E78.5 Hyperlipidemia, unspecified; F19.10 Other psychoactive substance abuse, uncomplicated; F10.10 Alcohol abuse, uncomplicated; Y90.9 Presence of alcohol in blood, level not specified; I25.10 Atherosclerotic heart disease of native coronary artery without angina pectoris; I25.2 Old myocardial infarction; I25.5 Ischemic cardiomyopathy; I50.9 Heart failure, unspecified; Z79.899 Other long term (current) drug therapy; Z95.1 Presence of aortocoronary bypass graft
CPT/HCPCS: 33990; 36415; 36600; 71045; 80048; 80053; 80061; 82330; 82435; 82550; 82803; 82947; 82948; 83036; 83605; 83735; 83874; 83880; 84100; 84132; 84145; 84295; 84443; 84484; 85014; 85018; 85025; 85027; 85347; 85610; 85651; 85730; 86140; 86850; 86900; 86901; 86923; 93005; 93308; 93356; 93458; 93880; 94002; 94010; 94150; 97039; 99156; 99157; A4344; A7048; C1894; G0378; J0171; J0583; J0610; J0690; J1644; J1815; J2001; J2250; J2270; J2440; J2704; J2720; J3010; J3475; J3480; J3490; J7030; J7040; J7050; J7060; P9045; Q9967

== ENCOUNTER 2021-06-19 13:21 | Inpatient (IN) | payer OTHER ==
[~2021-06-19] VITALS: Ht 170.2 cm; Wt 71.2 kg
[2021-06-19] VITALS (8 sets, daily range): BP systolic 100–143; BP diastolic 65–94
[~2021-06-19 13:21] MED LIST: ACET-2247 PO; ASPI-891 PO; ATOR20TA65 PO; FAMO20TA8 PO; METO25 PO
[2021-06-19] MEDS ORDERED: ACETAMINOPHEN 325 MG TAB PO PRN (14:00)
[2021-06-19] MEDS ORDERED: LIDOCAINE HCL 2% VISCOUS 15 ML UDCUP PO SCH (14:44)
[2021-06-19] MEDS ORDERED: LIDOCAINE HCL 2% VISCOUS 15 ML UDCUP ONE (14:48)
[2021-06-19 15:06] LABS: BASOPHILS % (AUTO) 0.4 % (0.0-5.0); EOSINOPHILS % (AUTO) 1.5 % (0.0-8.0); HEMATOCRIT 44.6 % (42-54); LYMPHOCYTES % (AUTO) 26.5 % (21.0-51.0); MEAN CORPUSCULAR HEMOGLOBIN 29.8 pg (27.0-33.0); MEAN CORPUSCULAR HGB CONC 33.4 g/dL (32.0-36.0); MEAN CORPUSCULAR VOLUME 89.2 fL (79-99); MONOCYTES % (AUTO) 9.3 % (3.0-13.0); NEUTROPHILS % (AUTO) 61.9 % (40.0-77.0); PLATELET COUNT (AUTO) 252 K/uL (130-400); RED CELL DISTRIBUTION WIDTH 13.5 % (11.0-15.5); WHITE BLOOD COUNT (AUTO) 11.4 K/uL (4.8-10.8)
[2021-06-19] MEDS ORDERED: MIDAZOLAM HCL 1 MG/ML 2ML VIAL ONE (15:25)
[2021-06-19] MEDS ORDERED: FENTANYL CITRATE PF 50 MCG/1 ML 2ML VIAL ONE (15:26)
[2021-06-19 15:34] LABS: INR 1.27 (0.85-1.15); PROTHROMBIN TIME 13.5 SEC (9.6-11.6)
[2021-06-19 15:36] LABS: BILIRUBIN,TOTAL 1.3 mg/dL (0.2-1.0); CREATININE 0.9 mg/dL (0.5-1.5); CRP QUANTITATIVE 27.5 mg/L (0.00-9.0); PARTIAL THROMBOPLASTIN TIME 25.6 SEC (26.3-35.5); POTASSIUM 3.6 mmol/L (3.5-5.1)
[2021-06-19 16:08] LABS: ERYTHROCYTE SEDIMENTATION RATE 3 MM/HR (0-15)
[2021-06-19] MEDS: FAMOTIDINE 20MG TAB PO SCH (20:13)
[2021-06-19] MEDS: ATORVASTATIN 40 MG TABLET PO SCH (20:13)
[2021-06-19] MEDS ORDERED: METOPROLOL TARTRATE 25 MG TAB PO SCH (21:00)
[2021-06-20] VITALS (15 sets, daily range): BP systolic 104–148; BP diastolic 63–102
[2021-06-20 04:52] LABS: HEMATOCRIT 41.7 % (42-54); MEAN CORPUSCULAR HGB CONC 33.3 g/dL (32.0-36.0); MEAN CORPUSCULAR VOLUME 90.1 fL (79-99); RED BLOOD CELL COUNT(AUTO) 4.63 MIL/uL (4.50-6.20); RED CELL DISTRIBUTION WIDTH 13.6 % (11.0-15.5); WHITE BLOOD COUNT (AUTO) 9.9 K/uL (4.8-10.8)
[2021-06-20 05:08] LABS: INR 1.23 (0.85-1.15); PROTHROMBIN TIME 13.2 SEC (9.6-11.6)
[2021-06-20 05:09] LABS: PARTIAL THROMBOPLASTIN TIME 26.5 SEC (26.3-35.5)
[2021-06-20 05:11] LABS: CRP QUANTITATIVE 28.9 mg/L (0.00-9.0); POTASSIUM 4.1 mmol/L (3.5-5.1)
[2021-06-20] MEDS ORDERED: IOHEXOL-350 50ML VIAL IV ONE (07:16)
[2021-06-20] MEDS ORDERED: IOHEXOL 350 MG/ML 100ML INFUS..BTL IV ONE (07:16)
[2021-06-20] MEDS ORDERED: HEPARIN 10,000 UNIT/10ML (1,000 UNIT/ML) VIAL ONE (07:16)
[2021-06-20] MEDS ORDERED: MIDAZOLAM HCL 1 MG/ML 2ML VIAL ONE (07:16)
[2021-06-20] MEDS ORDERED: NICARDIPINE 25MG INJ IV ONE (07:16)
[2021-06-20] MEDS ORDERED: NITROGLYCERIN 50MG VIAL IV ONE (07:16)
[2021-06-20] MEDS ORDERED: LIDOCAINE HCL 400MG/20ML VIAL ONE (07:17)
[2021-06-20] MEDS ORDERED: FENTANYL CITRATE PF 50 MCG/1 ML 2ML VIAL ONE (07:17)
[2021-06-20] MEDS: FAMOTIDINE 20MG TAB PO SCH ×2 (09:00→20:47)
[2021-06-20] MEDS ORDERED: ASPIRIN 325MG EC TAB PO SCH (09:00)
[2021-06-20] MEDS ORDERED: HEPARIN 25,000 UNITS/250ML D5W 250 ML IV ONE (09:14)
[2021-06-20] MEDS: ATORVASTATIN 40 MG TABLET PO SCH (20:46)
[2021-06-21] VITALS (21 sets, daily range): BP systolic 101–122; BP diastolic 48–75
[2021-06-21] MEDS: HEPARIN 25,000 UNITS/250ML D5W 250 ML IV SCH ×2 (00:35→16:19)
[2021-06-21 03:41] LABS: HEMATOCRIT 38.5 % (42-54); MEAN CORPUSCULAR HEMOGLOBIN 29.5 pg (27.0-33.0); MEAN CORPUSCULAR VOLUME 89.3 fL (79-99); RED BLOOD CELL COUNT(AUTO) 4.31 MIL/uL (4.50-6.20); RED CELL DISTRIBUTION WIDTH 13.7 % (11.0-15.5); WHITE BLOOD COUNT (AUTO) 8.6 K/uL (4.8-10.8)
[2021-06-21 04:00] LABS: ALBUMIN 2.7 g/dL (3.5-5.0); BILIRUBIN,TOTAL 0.4 mg/dL (0.2-1.0); CREATININE 0.8 mg/dL (0.5-1.5); POTASSIUM 3.7 mmol/L (3.5-5.1); TOTAL PROTEIN, SERUM 5.5 g/dL (6.0-8.3)
[2021-06-21] MEDS ORDERED: HEPARIN 5,000 UNIT VIAL ONE (07:40)
[2021-06-21] MEDS: FAMOTIDINE 20MG TAB PO SCH ×2 (07:42→21:07)
[2021-06-21] MEDS ORDERED: HEPARIN 5,000 UNIT VIAL IV SCH (08:00)
[2021-06-21] MEDS ORDERED: PHARMACY COMMUNICATION MISC SCH (08:30)
[2021-06-21] MEDS: FUROSEMIDE 100 MG/NS 100ML IV SCH ×2 (08:47)
[2021-06-21] MEDS: ASPIRIN 81MG CHEW TAB PO SCH (09:55)
[2021-06-21] MEDS: KCL 20 MEQ ERTAB PO PRN ×3 (09:56→17:07)
[2021-06-21 12:38] LABS: CREATININE 0.9 mg/dL (0.5-1.5); POTASSIUM 3.1 mmol/L (3.5-5.1)
[2021-06-21] MEDS: POTASSIUM CHLORIDE 20MEQ/100ML 100 ML IV PRN (12:47)
[2021-06-21] MEDS: LIDOCAINE HCL-MPF 1% 2ML VIAL IV PRN ×2 (13:02→14:38)
[2021-06-21] MEDS: ATORVASTATIN 40 MG TABLET PO SCH (21:07)
[2021-06-21 21:13] LABS: POTASSIUM 4.4 mmol/L (3.5-5.1)
[2021-06-22] VITALS (33 sets, daily range): BP systolic 95–128; BP diastolic 42–90
[2021-06-22 03:47] LABS: HEMATOCRIT 44.3 % (42-54); MEAN CORPUSCULAR HEMOGLOBIN 29.5 pg (27.0-33.0); MEAN CORPUSCULAR HGB CONC 32.1 g/dL (32.0-36.0); MEAN CORPUSCULAR VOLUME 91.9 fL (79-99); RED BLOOD CELL COUNT(AUTO) 4.82 MIL/uL (4.50-6.20); RED CELL DISTRIBUTION WIDTH 13.5 % (11.0-15.5); WHITE BLOOD COUNT (AUTO) 10.2 K/uL (4.8-10.8)
[2021-06-22 04:03] LABS: CREATININE 0.9 mg/dL (0.5-1.5); POTASSIUM 3.9 mmol/L (3.5-5.1)
[2021-06-22] MEDS ORDERED: PHARMACY COMMUNICATION MISC SCH (06:30)
[2021-06-22] MEDS: FAMOTIDINE 20MG TAB PO SCH ×2 (07:53→21:02)
[2021-06-22] MEDS: ASPIRIN 81MG CHEW TAB PO SCH (07:53)
[2021-06-22] MEDS: FUROSEMIDE 100 MG/NS 100ML IV SCH ×2 (07:53)
[2021-06-22] MEDS: HEPARIN 25,000 UNITS/250ML D5W 250 ML IV SCH (07:55)
[2021-06-22 14:10] LABS: CREATININE 0.8 mg/dL (0.5-1.5); POTASSIUM 3.9 mmol/L (3.5-5.1)
[2021-06-22] MEDS ORDERED: IOHEXOL-350 50ML VIAL IV ONE (14:44)
[2021-06-22] MEDS: ATORVASTATIN 40 MG TABLET PO SCH (21:02)
[2021-06-22 21:09] LABS: POTASSIUM 4.4 mmol/L (3.5-5.1)
[2021-06-23] VITALS (18 sets, daily range): BP systolic 86–130; BP diastolic 40–93
[2021-06-23 03:51] LABS: HEMATOCRIT 44.5 % (42-54); MEAN CORPUSCULAR HEMOGLOBIN 29.4 pg (27.0-33.0); RED CELL DISTRIBUTION WIDTH 13.4 % (11.0-15.5); WHITE BLOOD COUNT (AUTO) 9.4 K/uL (4.8-10.8)
[2021-06-23 04:07] LABS: ALBUMIN 3.5 g/dL (3.5-5.0); BILIRUBIN,TOTAL 0.5 mg/dL (0.2-1.0); CREATININE 0.9 mg/dL (0.5-1.5); POTASSIUM 4.2 mmol/L (3.5-5.1); TOTAL PROTEIN, SERUM 7.1 g/dL (6.0-8.3)
[2021-06-23 04:12] LABS: INR 1.1 (0.85-1.15); PROTHROMBIN TIME 11.9 SEC (9.6-11.6)
[2021-06-23 04:13] LABS: PARTIAL THROMBOPLASTIN TIME 27.1 SEC (26.3-35.5)
[2021-06-23] MEDS ORDERED: AMINOCAPROIC ACID 5,000MG VIAL 15,000 MG in 0.9% NACL 500ML IV.SOLN 420 ML IV PRN (07:30)
[2021-06-23] MEDS ORDERED: NOREPINEPHRINE BITARTRATE 8 MG in DEXTROSE 5%-WATER 250 ML IV PRN (07:30)
[2021-06-23] MEDS ORDERED: EPINEPHRINE PF 1MG AMP 10 MG in 0.9% NACL 250ML 240 ML IV PRN (07:30)
[2021-06-23] MEDS ORDERED: CEFAZOLIN SODIUM 1 GM VIAL IVP PRN (08:00)
[2021-06-23] MEDS ORDERED: NITROGLYCERIN 50MG/D5W 250ML 1 BOT ONE (08:55)
[2021-06-23] MEDS: ASPIRIN 81MG CHEW TAB PO SCH (09:00)
[2021-06-23] MEDS ORDERED: SODIUM BICARB 50MEQ 50ML VIAL 150 ML ONE (10:58)
[2021-06-23] MEDS ORDERED: ESMOLOL HCL 10 MG/ML 10 ML VIAL ONE (10:58)
[2021-06-23] MEDS ORDERED: LIDOCAINE PF 100MG/5ML (2%) SYRINGE 5ML ONE (10:58)
[2021-06-23] MEDS ORDERED: PROTAMINE SULFATE 10 MG/ML 25ML VIAL IV ONE (10:58)
[2021-06-23] MEDS ORDERED: EPINEPHRINE PF 1MG AMP ONE (10:58)
[2021-06-23] MEDS ORDERED: HEPARIN 10,000 UNIT/10ML (1,000 UNIT/ML) VIAL ONE ×2 (10:58→11:37)
[2021-06-23] MEDS ORDERED: NOREPINEPHRINE BITARTRATE 1 MG/1 ML ML IV ONE (10:59)
[2021-06-23] MEDS ORDERED: PROPOFOL 10 MG/ML 20ML VIAL IV ONE (10:59)
[2021-06-23] MEDS ORDERED: ROCURONIUM 10MG/1ML SYR 10 MG/ML ML ONE ×2 (10:59→15:15)
[2021-06-23] MEDS ORDERED: AMINOCAPROIC ACID 5,000MG VIAL ONE (10:59)
[2021-06-23] MEDS ORDERED: MIDAZOLAM HCL 1 MG/ML 2ML VIAL ONE (10:59)
[2021-06-23] MEDS ORDERED: FENTANYL CITRATE PF 50 MCG/1 ML 20ML VIAL IJ ONE (10:59)
[2021-06-23] MEDS ORDERED: CEFAZOLIN SODIUM 1 GM VIAL ONE ×3 (11:32→15:55)
[2021-06-23] MEDS ORDERED: DELNIDO FORMULA 2 BAG IV ONE (11:38)
[2021-06-23 12:18] LABS: ABG BASE EXCESS -0.5 mmol/L (-2.0-3.0); ABG HCO3 22.2 mmol/L (21.0-28.0); ABG OXYGEN SATURATION 99.5 % (95.0-99.0); ABG PCO2 31 mmHg (35-48)
[2021-06-23] MEDS ORDERED: 0.9%NACL 1000ML 1,000 ML IV ONE (12:22)
[2021-06-23 14:27] LABS: ABG BASE EXCESS -2.7 mmol/L (-2.0-3.0); ABG HCO3 23.3 mmol/L (21.0-28.0); ABG OXYGEN SATURATION 99.3 % (95.0-99.0); ABG PCO2 45 mmHg (35-48)
[2021-06-23 15:11] LABS: ABG HCO3 24.5 mmol/L (21.0-28.0); ABG OXYGEN SATURATION 98.7 % (95.0-99.0); ABG PCO2 40 mmHg (35-48)
[2021-06-23] MEDS ORDERED: AMIODARONE 150MG VIAL ONE (15:22)
[2021-06-23] MEDS ORDERED: ALBUMIN (HUMAN) 5% 500 ML IV ONE (15:41)
[2021-06-23] MEDS ORDERED: CEFAZOLIN SODIUM 1 GM VIAL IVP ONE (16:10)
[2021-06-23 16:19] LABS: ABG BASE EXCESS -0.8 mmol/L (-2.0-3.0); ABG HCO3 22.9 mmol/L (21.0-28.0); ABG OXYGEN SATURATION 99.1 % (95.0-99.0); ABG PCO2 35 mmHg (35-48)
[2021-06-23] MEDS ORDERED: AMINOCAPROIC ACID 5,000MG VIAL 15,000 MG in 0.9% NACL 250ML 250 ML IV SCH (16:30)
[2021-06-23] MEDS ORDERED: MAGNESIUM 2GM PREMIX 50ML 50 ML IV PRN (16:30)
[2021-06-23] MEDS ORDERED: EPINEPHRINE PF 1MG AMP 10 MG in DEXTROSE 5%-WATER 250 ML IV PRN (16:30)
[2021-06-23] MEDS ORDERED: MORPHINE 2 MG SYG IV PRN (16:30)
[2021-06-23] MEDS ORDERED: ACETAMINOPHEN 650 MG SUPPOSITORY RC PRN (16:30)
[2021-06-23] MEDS ORDERED: 0.9%NACL 1000ML 1,000 ML IV SCH (16:30)
[2021-06-23] MEDS ORDERED: DEXTROSE 50%-WATER 50 ML DISP.SYRIN IV PRN (16:30)
[2021-06-23] MEDS ORDERED: ALBUMIN (HUMAN) 5% 250 ML IV PRN (16:30)
[2021-06-23] MEDS ORDERED: GLUCAGON 1MG KIT 1 MG ML IM PRN (16:30)
[2021-06-23] MEDS ORDERED: NITROGLYCERIN 50MG/D5W 250ML 250 BOT IV SCH (16:30)
[2021-06-23] MEDS ORDERED: 0.9%NACL 10ML VIAL IVP PRN (16:30)
[2021-06-23] MEDS ORDERED: ONDANSETRON 4MG INJ IV PRN (16:30)
[2021-06-23] MEDS ORDERED: 0.9% NACL 500ML IV.SOLN 500 ML IV SCH (16:30)
[2021-06-23] MEDS ORDERED: TRAMADOL HCL 50 MG TABLET PO PRN ×2 (16:30)
[2021-06-23] MEDS ORDERED: POTASSIUM PHOS 15 mMOL+NS250ML 250 ML IV PRN (16:30)
[2021-06-23] MEDS ORDERED: NOREPINEPHRIN 4MG/NS 250ML 250 ML IV PRN (16:30)
[2021-06-23 17:06] LABS: HEMATOCRIT 34.4 % (42-54); MEAN CORPUSCULAR HEMOGLOBIN 29.6 pg (27.0-33.0); MEAN CORPUSCULAR HGB CONC 33.1 g/dL (32.0-36.0); MEAN CORPUSCULAR VOLUME 89.4 fL (79-99); RED BLOOD CELL COUNT(AUTO) 3.85 MIL/uL (4.50-6.20); RED CELL DISTRIBUTION WIDTH 13.2 % (11.0-15.5); WHITE BLOOD COUNT (AUTO) 23.4 K/uL (4.8-10.8)
[2021-06-23 17:19] LABS: INR 1.21 (0.85-1.15)
[2021-06-23 17:20] LABS: ABG BASE EXCESS -1.8 mmol/L (-2.0-3.0); ABG OXYGEN SATURATION 98.2 % (95.0-99.0); ABG PCO2 45 mmHg (35-48)
[2021-06-23 17:20] LABS: MAGNESIUM 2.6 mg/dL (1.80-2.40); PARTIAL THROMBOPLASTIN TIME 24.8 SEC (26.3-35.5); POTASSIUM 4.2 mmol/L (3.5-5.1)
[2021-06-23 17:27] LABS: ABG OXYGEN SATURATION 79.8 % (95.0-99.0); BASE EXCESS,VENOUS BLOOD GAS -3.2 (-2.0-3.0); HCO3,VENOUS BLOOD GAS 22.9 (21.0-28.0); PCO2,VENOUS BLOOD GAS 45 (35-48); PH,VENOUS BLOOD GAS 7.326 (7.350-7.450)
[2021-06-23] MEDS: SODIUM BICARB 50MEQ 50ML VIAL IV PRN ×6 (17:40→22:07)
[2021-06-23] MEDS ORDERED: INSULIN REGULAR, HUMAN 3ML 100 UNIT in 0.9%NACL 100ML 99 ML IV SCH ×2 (18:00)
[2021-06-23] MEDS: MORPHINE 2 MG SYG IV PRN (18:23)
[2021-06-23 18:38] LABS: ABG BASE EXCESS -1.2 mmol/L (-2.0-3.0); ABG HCO3 24.2 mmol/L (21.0-28.0); ABG OXYGEN SATURATION 98.1 % (95.0-99.0); ABG PCO2 43 mmHg (35-48)
[2021-06-23] MEDS: PROPOFOL 1000 MG/100 ML 100 ML IV PRN ×2 (18:53→23:00)
[2021-06-23] MEDS: POTASSIUM CHLORIDE 20MEQ/100ML 100 ML IV PRN ×4 (19:12→22:36)
[2021-06-23 19:26] LABS: ABG BASE EXCESS 2.2 mmol/L (-2.0-3.0); ABG HCO3 27.5 mmol/L (21.0-28.0); ABG OXYGEN SATURATION 98.8 % (95.0-99.0); ABG PCO2 46 mmHg (35-48)
[2021-06-23] MEDS: CALCIUM GLUC 1GM 1 GM in 0.9%NACL 50ML 50 ML IV PRN ×3 (20:15→22:37)
[2021-06-23 20:23] LABS: ABG BASE EXCESS -0.4 mmol/L (-2.0-3.0); ABG HCO3 25.1 mmol/L (21.0-28.0); ABG OXYGEN SATURATION 98.6 % (95.0-99.0); ABG PCO2 44 mmHg (35-48)
[2021-06-23] MEDS ORDERED: PHARMACY COMMUNICATION MISC SCH ×2 (20:30)
[2021-06-23] MEDS: ATORVASTATIN 40 MG TABLET PO SCH (20:43)
[2021-06-23] MEDS: FAMOTIDINE 20MG VIAL IV SCH (20:52)
[2021-06-23] MEDS: CEFAZOLIN SODIUM 1 GM VIAL IV SCH (20:53)
[2021-06-23 21:27] LABS: ABG BASE EXCESS -2.8 mmol/L (-2.0-3.0); ABG HCO3 23.3 mmol/L (21.0-28.0); ABG OXYGEN SATURATION 98.4 % (95.0-99.0); ABG PCO2 46 mmHg (35-48)
[2021-06-23] MEDS: MIDAZOLAM 100MG-0.9% NS 100ML 100ML BAG IV PRN (22:08)
[2021-06-23 22:23] LABS: ABG BASE EXCESS 3.8 mmol/L (-2.0-3.0); ABG HCO3 29.1 mmol/L (21.0-28.0); ABG OXYGEN SATURATION 98.3 % (95.0-99.0); ABG PCO2 47 mmHg (35-48)
[2021-06-24] VITALS (29 sets, daily range): BP systolic 23–185; BP diastolic 14–102
[2021-06-24 00:05] LABS: ABG BASE EXCESS 2.7 mmol/L (-2.0-3.0); ABG HCO3 27.1 mmol/L (21.0-28.0); ABG OXYGEN SATURATION 98.4 % (95.0-99.0); ABG PCO2 41 mmHg (35-48)
[2021-06-24] MEDS: MORPHINE 2 MG SYG IV PRN ×2 (01:14→08:14)
[2021-06-24 02:06] LABS: ABG BASE EXCESS 2.2 mmol/L (-2.0-3.0); ABG HCO3 26.8 mmol/L (21.0-28.0); ABG OXYGEN SATURATION 98.5 % (95.0-99.0); ABG PCO2 42 mmHg (35-48)
[2021-06-24] MEDS: POTASSIUM CHLORIDE 20MEQ/100ML 100 ML IV PRN ×2 (02:10→12:05)
[2021-06-24 03:54] LABS: ABG HCO3 24.3 mmol/L (21.0-28.0); ABG OXYGEN SATURATION 98.6 % (95.0-99.0); ABG PCO2 38 mmHg (35-48)
[2021-06-24] MEDS: CALCIUM GLUC 1GM 1 GM in 0.9%NACL 50ML 50 ML IV PRN ×2 (03:56→11:54)
[2021-06-24 04:30] LABS: HEMATOCRIT 36.4 % (42-54); MEAN CORPUSCULAR HEMOGLOBIN 29.1 pg (27.0-33.0); MEAN CORPUSCULAR HGB CONC 31.9 g/dL (32.0-36.0); MEAN CORPUSCULAR VOLUME 91.2 fL (79-99); RED BLOOD CELL COUNT(AUTO) 3.99 MIL/uL (4.50-6.20); RED CELL DISTRIBUTION WIDTH 13.3 % (11.0-15.5); WHITE BLOOD COUNT (AUTO) 16.2 K/uL (4.8-10.8)
[2021-06-24 04:38] LABS: INR 1.15 (0.85-1.15); PROTHROMBIN TIME 12.4 SEC (9.6-11.6)
[2021-06-24 04:39] LABS: PARTIAL THROMBOPLASTIN TIME 27.3 SEC (26.3-35.5)
[2021-06-24] MEDS: CEFAZOLIN SODIUM 1 GM VIAL IV SCH ×2 (05:03→13:23)
[2021-06-24 05:08] LABS: CREATININE 0.8 mg/dL (0.5-1.5); PHOSPHORUS 3.4 mg/dL (2.5-4.9); POTASSIUM 4.4 mmol/L (3.5-5.1)
[2021-06-24] MEDS ORDERED: NOREPINEPHRIN 4MG/NS 250ML 250 ML IV ONE (05:23)
[2021-06-24 06:21] LABS: ABG BASE EXCESS 0.4 mmol/L (-2.0-3.0); ABG OXYGEN SATURATION 98.4 % (95.0-99.0); ABG PCO2 40 mmHg (35-48)
[2021-06-24] MEDS: FAMOTIDINE 20MG VIAL IV SCH ×2 (08:28→23:29)
[2021-06-24] MEDS: ASPIRIN 81MG CHEW TAB PO SCH (08:29)
[2021-06-24 08:50] LABS: ABG BASE EXCESS 0.6 mmol/L (-2.0-3.0); ABG HCO3 26.2 mmol/L (21.0-28.0); ABG OXYGEN SATURATION 98.2 % (95.0-99.0); ABG PCO2 46 mmHg (35-48)
[2021-06-24 11:38] LABS: ABG BASE EXCESS 0.8 mmol/L (-2.0-3.0); ABG HCO3 25.9 mmol/L (21.0-28.0); ABG PCO2 43 mmHg (35-48)
[2021-06-24] MEDS: PROPOFOL 1000 MG/100 ML 100 ML IV PRN ×2 (12:01→18:59)
[2021-06-24 12:07] LABS: INR 1.21 (0.85-1.15)
[2021-06-24 12:08] LABS: PARTIAL THROMBOPLASTIN TIME 26.6 SEC (26.3-35.5)
[2021-06-24] MEDS ORDERED: COMPOUND IV REFRIGERATED 1 EACH IVSOLN MISC PRN (12:30)
[2021-06-24 13:50] LABS: ABG BASE EXCESS 1.6 mmol/L (-2.0-3.0); ABG HCO3 25.6 mmol/L (21.0-28.0); ABG OXYGEN SATURATION 97.5 % (95.0-99.0); ABG PCO2 38 mmHg (35-48)
[2021-06-24] MEDS ORDERED: IOHEXOL-350 75 ML VIAL IV ONE (16:44)
[2021-06-24] MEDS ORDERED: FUROSEMIDE 40MG VIAL ONE (16:48)
[2021-06-24] MEDS: MIDAZOLAM 100MG-0.9% NS 100ML 100ML BAG IV PRN (19:56)
[2021-06-24] MEDS: ATORVASTATIN 40 MG TABLET PO SCH (23:29)
[2021-06-25] VITALS (29 sets, daily range): BP systolic 115–166; BP diastolic 69–94
[2021-06-25] MEDS: PROPOFOL 1000 MG/100 ML 100 ML IV PRN ×2 (00:09→05:15)
[2021-06-25 04:34] LABS: HEMATOCRIT 33.5 % (42-54); MEAN CORPUSCULAR HEMOGLOBIN 29.3 pg (27.0-33.0); MEAN CORPUSCULAR HGB CONC 32.5 g/dL (32.0-36.0); MEAN CORPUSCULAR VOLUME 90.1 fL (79-99); RED BLOOD CELL COUNT(AUTO) 3.72 MIL/uL (4.50-6.20); RED CELL DISTRIBUTION WIDTH 13.6 % (11.0-15.5); WHITE BLOOD COUNT (AUTO) 18.7 K/uL (4.8-10.8)
[2021-06-25 04:41] LABS: CREATININE 0.5 mg/dL (0.5-1.5); MAGNESIUM 1.9 mg/dL (1.80-2.40); POTASSIUM 3.9 mmol/L (3.5-5.1)
[2021-06-25] MEDS: FAMOTIDINE 20MG VIAL IV SCH ×2 (07:32→20:08)
[2021-06-25] MEDS: ASPIRIN 81MG CHEW TAB PO SCH (07:32)
[2021-06-25] MEDS: ACETAMINOPHEN 325 MG TAB PO PRN ×2 (07:32→08:35)
[2021-06-25] MEDS: FOLIC ACID 5 MG/ML VIAL IV SCH (07:33)
[2021-06-25] MEDS: POTASSIUM CHLORIDE 20MEQ/100ML 100 ML IV PRN (08:33)
[2021-06-25] MEDS ORDERED: ENOXAPARIN SODIUM 40 MG/0.4 ML SYRINGE SQ SCH (09:00)
[2021-06-25] MEDS ORDERED: THIAMINE HCL 100 MG/ML 2ML VIAL IM SCH (09:00)
[2021-06-25] MEDS ORDERED: ENOXAPARIN SODIUM 30 MG/0.3 ML SQ ONE (10:51)
[2021-06-25] MEDS: ENOXAPARIN SODIUM 30 MG/0.3 ML SQ SCH (10:52)
[2021-06-25] MEDS: LEVETIRACETAM 1,000 MG in 0.9%NACL 100ML 100 ML IV SCH ×2 (13:23→21:45)
[2021-06-25] MEDS: ATORVASTATIN 40 MG TABLET PO SCH (20:08)
[2021-06-25] MEDS: MIDAZOLAM 100MG-0.9% NS 100ML 100ML BAG IV PRN (20:10)
[2021-06-26] VITALS (33 sets, daily range): BP systolic 99–144; BP diastolic 53–80
[2021-06-26] MEDS: LEVETIRACETAM 1,000 MG in 0.9%NACL 100ML 100 ML IV SCH (05:09)
[2021-06-26 05:12] LABS: MEAN CORPUSCULAR HEMOGLOBIN 29.5 pg (27.0-33.0); MEAN CORPUSCULAR HGB CONC 32.5 g/dL (32.0-36.0); MEAN CORPUSCULAR VOLUME 90.7 fL (79-99); RED BLOOD CELL COUNT(AUTO) 3.53 MIL/uL (4.50-6.20); RED CELL DISTRIBUTION WIDTH 13.4 % (11.0-15.5); WHITE BLOOD COUNT (AUTO) 13.6 K/uL (4.8-10.8)
[2021-06-26 05:23] LABS: CREATININE 0.5 mg/dL (0.5-1.5); POTASSIUM 4.1 mmol/L (3.5-5.1)
[2021-06-26 05:58] LABS: THYROID STIMULATING HORMONE 0.96 uIU/mL (0.36-3.74)
[2021-06-26] MEDS: FOLIC ACID 5 MG/ML VIAL IV SCH (08:21)
[2021-06-26] MEDS: FAMOTIDINE 20MG VIAL IV SCH ×2 (08:23→21:00)
[2021-06-26] MEDS: MULTIVITAMIN TABLET PO SCH (08:25)
[2021-06-26] MEDS: ASPIRIN 81MG CHEW TAB PO SCH (08:29)
[2021-06-26] MEDS: ENOXAPARIN SODIUM 30 MG/0.3 ML SQ SCH (08:30)
[2021-06-26] MEDS ORDERED: THIAMINE HCL IV SCH (09:00)
[2021-06-26] MEDS ORDERED: THIAMINE HCL 100 MG/ML 2ML VIAL IVP SCH (09:00)
[2021-06-26] MEDS ORDERED: [UNRECOGNIZED DRUG - OTHER] IV SCH (09:00)
[2021-06-26] MEDS ORDERED: THIAMINE HCL 300 MG in 0.9%NACL 50ML 50 ML IV SCH (10:59)
[2021-06-26] MEDS ORDERED: LEVETIRACETAM 1,500 MG in 0.9%NACL 100ML 100 ML IV SCH (14:00)
[2021-06-26] MEDS ORDERED: [UNRECOGNIZED DRUG - OTHER] IJ ONE (14:00)
[2021-06-26] MEDS ORDERED: FOSPHENYTOIN SODIUM IJ ONE (14:00)
[2021-06-26] MEDS ORDERED: COMPOUND IV MISC 1 EACH IVSOLN MISC PRN (15:30)
[2021-06-26] MEDS: MIDAZOLAM 100MG-0.9% NS 100ML 100ML BAG IV PRN (18:17)
[2021-06-26] MEDS: LEVETIRACETAM 1,500 MG in 0.9%NACL 100ML 100 ML IV SCH (18:22)
[2021-06-26] MEDS: ATORVASTATIN 40 MG TABLET PO SCH (21:00)
[2021-06-26] MEDS: FOSPHENYTOIN SODIUM 100 MG in 0.9%NACL 50ML 50 ML IJ SCH (21:00)
[2021-06-27] VITALS (28 sets, daily range): BP systolic 100–180; BP diastolic 49–90
[2021-06-27] MEDS: FOSPHENYTOIN SODIUM 100 MG in 0.9%NACL 50ML 50 ML IJ SCH ×3 (05:17→22:13)
[2021-06-27 05:19] LABS: MEAN CORPUSCULAR HEMOGLOBIN 29.1 pg (27.0-33.0); MEAN CORPUSCULAR HGB CONC 32.3 g/dL (32.0-36.0); MEAN CORPUSCULAR VOLUME 90.1 fL (79-99); RED BLOOD CELL COUNT(AUTO) 3.44 MIL/uL (4.50-6.20); RED CELL DISTRIBUTION WIDTH 13.1 % (11.0-15.5); WHITE BLOOD COUNT (AUTO) 11.7 K/uL (4.8-10.8)
[2021-06-27] MEDS: LEVETIRACETAM 1,500 MG in 0.9%NACL 100ML 100 ML IV SCH ×2 (05:22→17:38)
[2021-06-27 05:42] LABS: CREATININE 0.5 mg/dL (0.5-1.5); POTASSIUM 3.6 mmol/L (3.5-5.1)
[2021-06-27] MEDS: PROPOFOL 1000 MG/100 ML 100 ML IV PRN ×2 (08:30→16:27)
[2021-06-27] MEDS: FOLIC ACID 5 MG/ML VIAL IV SCH (08:40)
[2021-06-27] MEDS: MULTIVITAMIN TABLET PO SCH (08:43)
[2021-06-27] MEDS: FAMOTIDINE 20MG VIAL IV SCH ×2 (08:43→22:13)
[2021-06-27] MEDS: ASPIRIN 81MG CHEW TAB PO SCH (08:43)
[2021-06-27] MEDS: ENOXAPARIN SODIUM 30 MG/0.3 ML SQ SCH (08:44)
[2021-06-27] MEDS: THIAMINE HCL 300 MG in 0.9%NACL 50ML 50 ML IV SCH (08:47)
[2021-06-27 10:26] LABS: ABG BASE EXCESS -0.4 mmol/L (-2.0-3.0); ABG HCO3 23.2 mmol/L (21.0-28.0); ABG OXYGEN SATURATION 95.8 % (95.0-99.0); ABG PCO2 34 mmHg (35-48)
[2021-06-27] MEDS: CHLORHEXIDINE GLUCONATE 473 ML MOUTHWASH MM SCH ×3 (10:27→22:14)
[2021-06-27] MEDS ORDERED: FUROSEMIDE 20MG VIAL IV SCH (10:27)
[2021-06-27] MEDS: POTASSIUM CHLORIDE 10% ELIXIR 20 MEQ/15 ML UDCUP PO PRN ×2 (10:45→16:25)
[2021-06-27] MEDS: ARTIFICAL TEARS SOL 15 ML OU SCH ×3 (10:45→22:14)
[2021-06-27] MEDS: MIDAZOLAM 100MG-0.9% NS 100ML 100ML BAG IV PRN (12:13)
[2021-06-27] MEDS: ATORVASTATIN 40 MG TABLET PO SCH (22:14)
[2021-06-27] MEDS: CALCIUM GLUC 1GM 1 GM in 0.9%NACL 50ML 50 ML IV PRN (22:16)
[2021-06-28] VITALS (28 sets, daily range): BP systolic 101–160; BP diastolic 60–93
[2021-06-28] MEDS ORDERED: PROPOFOL 1000 MG/100 ML 100 ML IV ONE ×3 (00:25→12:17)
[2021-06-28] MEDS: CHLORHEXIDINE GLUCONATE 473 ML MOUTHWASH MM SCH ×4 (04:31→21:52)
[2021-06-28] MEDS: ARTIFICAL TEARS SOL 15 ML OU SCH ×4 (04:31→21:30)
[2021-06-28 05:27] LABS: HEMATOCRIT 32.6 % (42-54); MEAN CORPUSCULAR HEMOGLOBIN 29.1 pg (27.0-33.0); MEAN CORPUSCULAR HGB CONC 32.5 g/dL (32.0-36.0); MEAN CORPUSCULAR VOLUME 89.6 fL (79-99); RED BLOOD CELL COUNT(AUTO) 3.64 MIL/uL (4.50-6.20); RED CELL DISTRIBUTION WIDTH 13.1 % (11.0-15.5); WHITE BLOOD COUNT (AUTO) 9.7 K/uL (4.8-10.8)
[2021-06-28] MEDS: MIDAZOLAM 100MG-0.9% NS 100ML 100ML BAG IV PRN (05:32)
[2021-06-28 05:48] LABS: ALBUMIN 2.7 g/dL (3.5-5.0); BILIRUBIN,TOTAL 0.5 mg/dL (0.2-1.0); CREATININE 0.5 mg/dL (0.5-1.5); POTASSIUM 3.7 mmol/L (3.5-5.1); TOTAL PROTEIN, SERUM 6.6 g/dL (6.0-8.3)
[2021-06-28] MEDS: LEVETIRACETAM 1,500 MG in 0.9%NACL 100ML 100 ML IV SCH ×2 (05:59→17:50)
[2021-06-28] MEDS: FOSPHENYTOIN SODIUM 100 MG in 0.9%NACL 50ML 50 ML IJ SCH ×3 (05:59→21:52)
[2021-06-28] MEDS: POTASSIUM CHLORIDE 20MEQ/100ML 100 ML IV PRN (08:22)
[2021-06-28] MEDS: ASPIRIN 81MG CHEW TAB PO SCH (09:12)
[2021-06-28] MEDS: FAMOTIDINE 20MG VIAL IV SCH ×2 (09:12→21:52)
[2021-06-28] MEDS: MULTIVITAMIN TABLET PO SCH (09:12)
[2021-06-28] MEDS: FOLIC ACID 5 MG/ML VIAL IV SCH (09:13)
[2021-06-28] MEDS: ENOXAPARIN SODIUM 30 MG/0.3 ML SQ SCH (09:13)
[2021-06-28] MEDS: THIAMINE HCL 300 MG in 0.9%NACL 50ML 50 ML IV SCH (09:14)
[2021-06-28] MEDS ORDERED: PROPOFOL 1000 MG/100 ML IV PRN (12:30)
[2021-06-28] MEDS: PROPOFOL 1000 MG/100 ML 100 ML IV PRN ×2 (17:51→21:45)
[2021-06-28] MEDS ORDERED: FUROSEMIDE 20MG VIAL IV ONE (18:00)
[2021-06-28] MEDS: ATORVASTATIN 40 MG TABLET PO SCH (21:52)
[2021-06-29] VITALS (34 sets, daily range): BP systolic 83–133; BP diastolic 46–80
[2021-06-29] MEDS: PROPOFOL 1000 MG/100 ML 100 ML IV PRN ×2 (03:08→08:31)
[2021-06-29] MEDS: ARTIFICAL TEARS SOL 15 ML OU SCH ×4 (04:49→22:25)
[2021-06-29] MEDS: CHLORHEXIDINE GLUCONATE 473 ML MOUTHWASH MM SCH ×4 (04:49→22:25)
[2021-06-29] MEDS: LEVETIRACETAM 1,500 MG in 0.9%NACL 100ML 100 ML IV SCH ×2 (05:51→17:05)
[2021-06-29] MEDS: MIDAZOLAM 100MG-0.9% NS 100ML 100ML BAG IV PRN (05:51)
[2021-06-29 06:31] LABS: BASOPHILS % (AUTO) 0.5 % (0.0-5.0); EOSINOPHILS % (AUTO) 4.6 % (0.0-8.0); HEMATOCRIT 33.1 % (42-54); MEAN CORPUSCULAR HEMOGLOBIN 29.7 pg (27.0-33.0); MEAN CORPUSCULAR HGB CONC 32.9 g/dL (32.0-36.0); MEAN CORPUSCULAR VOLUME 90.2 fL (79-99); MONOCYTES % (AUTO) 11.5 % (3.0-13.0); NEUTROPHILS % (AUTO) 66.8 % (40.0-77.0); PLATELET COUNT (AUTO) 446 K/uL (130-400); RED BLOOD CELL COUNT(AUTO) 3.67 MIL/uL (4.50-6.20); RED CELL DISTRIBUTION WIDTH 13.1 % (11.0-15.5); WHITE BLOOD COUNT (AUTO) 10.4 K/uL (4.8-10.8)
[2021-06-29 06:50] LABS: CREATININE 0.5 mg/dL (0.5-1.5); POTASSIUM 3.5 mmol/L (3.5-5.1)
[2021-06-29] MEDS: FOSPHENYTOIN SODIUM 100 MG in 0.9%NACL 50ML 50 ML IJ SCH ×3 (07:05→23:30)
[2021-06-29] MEDS: POTASSIUM CHLORIDE 20MEQ/100ML 100 ML IV PRN (07:06)
[2021-06-29] MEDS: ASPIRIN 81MG CHEW TAB PO SCH (08:28)
[2021-06-29] MEDS: THIAMINE HCL 300 MG in 0.9%NACL 50ML 50 ML IV SCH (08:28)
[2021-06-29] MEDS: FOLIC ACID 5 MG/ML VIAL IV SCH (08:28)
[2021-06-29] MEDS: ENOXAPARIN SODIUM 30 MG/0.3 ML SQ SCH (08:29)
[2021-06-29] MEDS: FAMOTIDINE 20MG VIAL IV SCH ×2 (08:29→22:25)
[2021-06-29] MEDS: MULTIVITAMIN TABLET PO SCH (08:29)
[2021-06-29] MEDS: DEXMEDETOMIDINE 400MCG/NS100ML IV SCH ×3 (08:30→20:30)
[2021-06-29] MEDS ORDERED: DEXMEDETOMIDINE 400MCG/NS100ML IV ONE (10:26)
[2021-06-29] MEDS: POTASSIUM CHLORIDE 10% ELIXIR 20 MEQ/15 ML UDCUP PO PRN ×2 (10:40→10:41)
[2021-06-29] MEDS ORDERED: LORAZEPAM 2 MG/ML 1 ML VIAL IVP PRN (11:00)
[2021-06-29] MEDS: ATORVASTATIN 40 MG TABLET PO SCH (22:25)
[2021-06-30] VITALS (29 sets, daily range): BP systolic 94–199; BP diastolic 47–97
[2021-06-30] MEDS: DEXMEDETOMIDINE 400MCG/NS100ML IV SCH ×2 (00:45→02:38)
[2021-06-30] MEDS: CHLORHEXIDINE GLUCONATE 473 ML MOUTHWASH MM SCH ×4 (06:10→22:27)
[2021-06-30] MEDS: LEVETIRACETAM 1,500 MG in 0.9%NACL 100ML 100 ML IV SCH ×2 (06:10→18:12)
[2021-06-30] MEDS: ARTIFICAL TEARS SOL 15 ML OU SCH ×4 (06:10→21:30)
[2021-06-30] MEDS: FOSPHENYTOIN SODIUM 100 MG in 0.9%NACL 50ML 50 ML IJ SCH ×3 (06:10→23:28)
[2021-06-30 06:30] LABS: HEMATOCRIT 37.8 % (42-54); MEAN CORPUSCULAR HGB CONC 32.5 g/dL (32.0-36.0); MEAN CORPUSCULAR VOLUME 89.2 fL (79-99); RED BLOOD CELL COUNT(AUTO) 4.24 MIL/uL (4.50-6.20); WHITE BLOOD COUNT (AUTO) 9.2 K/uL (4.8-10.8)
[2021-06-30 06:41] LABS: CREATININE 0.4 mg/dL (0.5-1.5); MAGNESIUM 1.8 mg/dL (1.80-2.40); POTASSIUM 3.9 mmol/L (3.5-5.1)
[2021-06-30] MEDS ORDERED: MAGNESIUM 2GM PREMIX 50ML 50 ML IV SCH (08:30)
[2021-06-30 08:40] LABS: ABG BASE EXCESS -0.2 mmol/L (-2.0-3.0); ABG OXYGEN SATURATION 94.6 % (95.0-99.0); ABG PCO2 38 mmHg (35-48)
[2021-06-30] MEDS: FAMOTIDINE 20MG VIAL IV SCH ×2 (09:08→19:53)
[2021-06-30] MEDS: THIAMINE HCL 100 MG/ML 2ML VIAL IVP SCH (09:09)
[2021-06-30] MEDS: FOLIC ACID 5 MG/ML VIAL IV SCH (09:17)
[2021-06-30] MEDS: ENOXAPARIN SODIUM 30 MG/0.3 ML SQ SCH (09:18)
[2021-06-30 10:03] LABS: ABG BASE EXCESS -0.7 mmol/L (-2.0-3.0); ABG OXYGEN SATURATION 97.9 % (95.0-99.0); ABG PCO2 35 mmHg (35-48)
[2021-06-30] MEDS: MULTIVITAMIN TABLET PO SCH (12:35)
[2021-06-30] MEDS: ASPIRIN 81MG CHEW TAB PO SCH (12:35)
[2021-06-30] MEDS: ATORVASTATIN 40 MG TABLET PO SCH (19:53)
[2021-06-30] MEDS: CLONAZEPAM 1MG TAB PO PRN (19:54)
[2021-06-30] MEDS: ACETAMINOPHEN 325 MG TAB PO PRN (19:54)
[2021-06-30] MEDS ORDERED: LORAZEPAM 2 MG/ML 1 ML VIAL ONE (21:47)
[2021-06-30] MEDS ORDERED: LORAZEPAM 2 MG/ML 1 ML VIAL IVP ONE (22:00)
[2021-07-01] VITALS (25 sets, daily range): BP systolic 86–134; BP diastolic 50–89
[2021-07-01] MEDS: CLONAZEPAM 1MG TAB PO PRN (01:01)
[2021-07-01] MEDS: ARTIFICAL TEARS SOL 15 ML OU SCH ×4 (03:30→21:22)
[2021-07-01] MEDS: CHLORHEXIDINE GLUCONATE 473 ML MOUTHWASH MM SCH ×4 (04:08→21:26)
[2021-07-01] MEDS: LEVETIRACETAM 1,500 MG in 0.9%NACL 100ML 100 ML IV SCH ×2 (05:30→18:19)
[2021-07-01] MEDS: FOSPHENYTOIN SODIUM 100 MG in 0.9%NACL 50ML 50 ML IJ SCH ×3 (05:31→21:26)
[2021-07-01 06:26] LABS: BASOPHILS % (AUTO) 0.4 % (0.0-5.0); EOSINOPHILS % (AUTO) 2.6 % (0.0-8.0); LYMPHOCYTES % (AUTO) 15.1 % (21.0-51.0); MEAN CORPUSCULAR HEMOGLOBIN 29.4 pg (27.0-33.0); MEAN CORPUSCULAR VOLUME 88.9 fL (79-99); MONOCYTES % (AUTO) 10.4 % (3.0-13.0); NEUTROPHILS % (AUTO) 70.9 % (40.0-77.0); PLATELET COUNT (AUTO) 484 K/uL (130-400); RED BLOOD CELL COUNT(AUTO) 3.71 MIL/uL (4.50-6.20); RED CELL DISTRIBUTION WIDTH 12.9 % (11.0-15.5); WHITE BLOOD COUNT (AUTO) 12.1 K/uL (4.8-10.8)
[2021-07-01 06:37] LABS: CREATININE 0.4 mg/dL (0.5-1.5); MAGNESIUM 1.9 mg/dL (1.80-2.40); POTASSIUM 3.1 mmol/L (3.5-5.1)
[2021-07-01] MEDS: DEXMEDETOMIDINE 400MCG/NS100ML IV SCH ×2 (07:59→18:27)
[2021-07-01] MEDS: ASPIRIN 81MG CHEW TAB PO SCH (09:00)
[2021-07-01] MEDS: MULTIVITAMIN TABLET PO SCH (09:00)
[2021-07-01] MEDS: FAMOTIDINE 20MG VIAL IV SCH ×2 (09:14→21:21)
[2021-07-01] MEDS: THIAMINE HCL 100 MG/ML 2ML VIAL IVP SCH (09:14)
[2021-07-01] MEDS: ENOXAPARIN SODIUM 30 MG/0.3 ML SQ SCH (09:14)
[2021-07-01] MEDS: POTASSIUM CHLORIDE 20MEQ/100ML 100 ML IV PRN (09:15)
[2021-07-01] MEDS: FOLIC ACID 5 MG/ML VIAL IV SCH (09:39)
[2021-07-01 20:13] LABS: MAGNESIUM 1.9 mg/dL (1.80-2.40); POTASSIUM 3.8 mmol/L (3.5-5.1)
[2021-07-01] MEDS: ATORVASTATIN 40 MG TABLET PO SCH (21:22)
[2021-07-02] VITALS (21 sets, daily range): BP systolic 86–126; BP diastolic 56–87
[2021-07-02] MEDS: ARTIFICAL TEARS SOL 15 ML OU SCH ×4 (04:11→20:42)
[2021-07-02] MEDS: CHLORHEXIDINE GLUCONATE 473 ML MOUTHWASH MM SCH ×4 (04:11→20:56)
[2021-07-02 04:36] LABS: HEMATOCRIT 32.6 % (42-54); MEAN CORPUSCULAR HEMOGLOBIN 28.9 pg (27.0-33.0); MEAN CORPUSCULAR HGB CONC 32.5 g/dL (32.0-36.0); MEAN CORPUSCULAR VOLUME 88.8 fL (79-99); RED BLOOD CELL COUNT(AUTO) 3.67 MIL/uL (4.50-6.20); RED CELL DISTRIBUTION WIDTH 12.9 % (11.0-15.5); WHITE BLOOD COUNT (AUTO) 9.5 K/uL (4.8-10.8)
[2021-07-02] MEDS: DEXMEDETOMIDINE 400MCG/NS100ML IV SCH (04:55)
[2021-07-02 04:57] LABS: CREATININE 0.5 mg/dL (0.5-1.5); POTASSIUM 3.8 mmol/L (3.5-5.1)
[2021-07-02] MEDS: LEVETIRACETAM 1,500 MG in 0.9%NACL 100ML 100 ML IV SCH ×2 (05:39→17:52)
[2021-07-02] MEDS: FOSPHENYTOIN SODIUM 100 MG in 0.9%NACL 50ML 50 ML IJ SCH ×3 (05:39→20:42)
[2021-07-02] MEDS: ASPIRIN 81MG CHEW TAB PO SCH (09:00)
[2021-07-02] MEDS: MULTIVITAMIN TABLET PO SCH (09:00)
[2021-07-02] MEDS: FAMOTIDINE 20MG VIAL IV SCH ×2 (10:56→20:41)
[2021-07-02] MEDS: THIAMINE HCL 100 MG/ML 2ML VIAL IVP SCH (10:56)
[2021-07-02] MEDS: ENOXAPARIN SODIUM 30 MG/0.3 ML SQ SCH (10:57)
[2021-07-02] MEDS: FOLIC ACID 5 MG/ML VIAL IV SCH (12:05)
[2021-07-02] MEDS: ATORVASTATIN 40 MG TABLET PO SCH (20:42)
[2021-07-02] MEDS: CLONAZEPAM 1MG TAB PO PRN (21:16)
[2021-07-03] VITALS: BP 108/67
[2021-07-03] MEDS: ARTIFICAL TEARS SOL 15 ML OU SCH (03:17)
[2021-07-03 04:00] VITALS: BP 108/60
[2021-07-03] MEDS: CHLORHEXIDINE GLUCONATE 473 ML MOUTHWASH MM SCH ×3 (04:23→22:27)
[2021-07-03] MEDS: FOSPHENYTOIN SODIUM 100 MG in 0.9%NACL 50ML 50 ML IJ SCH ×3 (05:30→21:25)
[2021-07-03] MEDS: LEVETIRACETAM 1,500 MG in 0.9%NACL 100ML 100 ML IV SCH ×2 (06:15→16:45)
[2021-07-03 07:00] VITALS: BP 13/67
[2021-07-03 07:01] LABS: BASOPHILS % (AUTO) 0.4 % (0.0-5.0); EOSINOPHILS % (AUTO) 2.6 % (0.0-8.0); LYMPHOCYTES % (AUTO) 17.2 % (21.0-51.0); MEAN CORPUSCULAR HEMOGLOBIN 28.5 pg (27.0-33.0); MEAN CORPUSCULAR HGB CONC 32.4 g/dL (32.0-36.0); MONOCYTES % (AUTO) 9.1 % (3.0-13.0); NEUTROPHILS % (AUTO) 70.1 % (40.0-77.0); PLATELET COUNT (AUTO) 519 K/uL (130-400); RED BLOOD CELL COUNT(AUTO) 3.75 MIL/uL (4.50-6.20); RED CELL DISTRIBUTION WIDTH 12.9 % (11.0-15.5); WHITE BLOOD COUNT (AUTO) 10.3 K/uL (4.8-10.8)
[2021-07-03 07:16] LABS: ALBUMIN 2.9 g/dL (3.5-5.0); BILIRUBIN,TOTAL 0.4 mg/dL (0.2-1.0); CREATININE 0.5 mg/dL (0.5-1.5); MAGNESIUM 1.9 mg/dL (1.80-2.40); POTASSIUM 3.4 mmol/L (3.5-5.1); TOTAL PROTEIN, SERUM 6.6 g/dL (6.0-8.3)
[2021-07-03] MEDS: MULTIVITAMIN TABLET PO SCH (10:15)
[2021-07-03] MEDS: ASPIRIN 81MG CHEW TAB PO SCH (10:15)
[2021-07-03] MEDS: FAMOTIDINE 20MG VIAL IV SCH ×2 (10:16→20:52)
[2021-07-03] MEDS: ENOXAPARIN SODIUM 30 MG/0.3 ML SQ SCH (10:16)
[2021-07-03] MEDS: THIAMINE HCL 100 MG/ML 2ML VIAL IVP SCH (10:16)
[2021-07-03 13:00] VITALS: BP 108/73
[2021-07-03] MEDS: POTASSIUM CHLORIDE 10% ELIXIR 20 MEQ/15 ML UDCUP PO PRN (14:03)
[2021-07-03] MEDS: FOLIC ACID 5 MG/ML VIAL IV SCH (14:45)
[2021-07-03 16:00] VITALS: BP 102/63
[2021-07-03 20:04] VITALS: BP 112/80
[2021-07-03] MEDS: ATORVASTATIN 40 MG TABLET PO SCH (20:52)
[2021-07-04 00:04] VITALS: BP 119/67
[2021-07-04 04:04] VITALS: BP 119/75
[2021-07-04] MEDS: CHLORHEXIDINE GLUCONATE 473 ML MOUTHWASH MM SCH ×4 (04:27→22:27)
[2021-07-04] MEDS: LEVETIRACETAM 1,500 MG in 0.9%NACL 100ML 100 ML IV SCH ×2 (05:30→17:56)
[2021-07-04] MEDS: FOSPHENYTOIN SODIUM 100 MG in 0.9%NACL 50ML 50 ML IJ SCH ×3 (06:20→21:01)
[2021-07-04 06:59] LABS: BASOPHILS % (AUTO) 0.5 % (0.0-5.0); EOSINOPHILS % (AUTO) 4.9 % (0.0-8.0); HEMATOCRIT 33.2 % (42-54); LYMPHOCYTES % (AUTO) 23.1 % (21.0-51.0); MEAN CORPUSCULAR HEMOGLOBIN 28.9 pg (27.0-33.0); MEAN CORPUSCULAR HGB CONC 32.5 g/dL (32.0-36.0); MEAN CORPUSCULAR VOLUME 88.8 fL (79-99); MONOCYTES % (AUTO) 9.5 % (3.0-13.0); NEUTROPHILS % (AUTO) 61.6 % (40.0-77.0); PLATELET COUNT (AUTO) 518 K/uL (130-400); RED BLOOD CELL COUNT(AUTO) 3.74 MIL/uL (4.50-6.20); RED CELL DISTRIBUTION WIDTH 13.2 % (11.0-15.5); WHITE BLOOD COUNT (AUTO) 9.5 K/uL (4.8-10.8)
[2021-07-04 07:11] LABS: CREATININE 0.4 mg/dL (0.5-1.5); MAGNESIUM 1.8 mg/dL (1.80-2.40); POTASSIUM 3.6 mmol/L (3.5-5.1)
[2021-07-04 08:40] VITALS: BP 113/87
[2021-07-04] MEDS: ENOXAPARIN SODIUM 30 MG/0.3 ML SQ SCH ×2 (09:00→10:46)
[2021-07-04] MEDS: ASPIRIN 81MG CHEW TAB PO SCH (10:45)
[2021-07-04] MEDS: FAMOTIDINE 20MG VIAL IV SCH ×2 (10:45→19:41)
[2021-07-04] MEDS: FOLIC ACID 5 MG/ML VIAL IV SCH (10:45)
[2021-07-04] MEDS: CLONAZEPAM 1MG TAB PO PRN (10:45)
[2021-07-04] MEDS: MULTIVITAMIN TABLET PO SCH (10:45)
[2021-07-04] MEDS: THIAMINE HCL 100 MG/ML 2ML VIAL IVP SCH (11:22)
[2021-07-04 11:45] VITALS: BP 104/67
[2021-07-04] MEDS ORDERED: HALOPERIDOL INJ 5 MG/ML VIAL IM PRN (14:00)
[2021-07-04] MEDS ORDERED: DiphenhydrAMINE HCL 50 MG/ML VIAL IM PRN (14:00)
[2021-07-04] MEDS ORDERED: HALOPERIDOL INJ 5 MG/ML VIAL ONE (14:01)
[2021-07-04] MEDS ORDERED: DiphenhydrAMINE HCL 50 MG/ML VIAL ONE (14:02)
[2021-07-04 17:08] VITALS: BP 106/67
[2021-07-04 20:00] VITALS: BP 100/58
[2021-07-04] MEDS: ATORVASTATIN 40 MG TABLET PO SCH (21:01)
[2021-07-05] VITALS (7 sets, daily range): BP systolic 99–144; BP diastolic 57–91
[2021-07-05] MEDS: CHLORHEXIDINE GLUCONATE 473 ML MOUTHWASH MM SCH ×4 (03:32→22:23)
[2021-07-05] MEDS: LEVETIRACETAM 1,500 MG in 0.9%NACL 100ML 100 ML IV SCH ×2 (04:16→17:58)
[2021-07-05] MEDS: FOSPHENYTOIN SODIUM 100 MG in 0.9%NACL 50ML 50 ML IJ SCH ×3 (05:17→20:34)
[2021-07-05] MEDS: ASPIRIN 81MG CHEW TAB PO SCH (08:14)
[2021-07-05] MEDS: MULTIVITAMIN TABLET PO SCH (08:15)
[2021-07-05] MEDS: THIAMINE HCL 100 MG/ML 2ML VIAL IVP SCH (08:15)
[2021-07-05] MEDS: FAMOTIDINE 20MG VIAL IV SCH ×2 (08:15→20:33)
[2021-07-05] MEDS: ENOXAPARIN SODIUM 30 MG/0.3 ML SQ SCH (08:16)
[2021-07-05] MEDS: FOLIC ACID 5 MG/ML VIAL IV SCH (09:00)
[2021-07-05] MEDS: ATORVASTATIN 40 MG TABLET PO SCH (20:33)
[2021-07-06 03:19] VITALS: BP 107/71
[2021-07-06] MEDS: CHLORHEXIDINE GLUCONATE 473 ML MOUTHWASH MM SCH ×4 (04:16→21:19)
[2021-07-06] MEDS: FOSPHENYTOIN SODIUM 100 MG in 0.9%NACL 50ML 50 ML IJ SCH ×3 (04:21→21:18)
[2021-07-06] MEDS: LEVETIRACETAM 1,500 MG in 0.9%NACL 100ML 100 ML IV SCH ×2 (05:10→18:07)
[2021-07-06] MEDS: FAMOTIDINE 20MG VIAL IV SCH ×2 (07:49→20:16)
[2021-07-06] MEDS: FOLIC ACID 5 MG/ML VIAL IV SCH (07:49)
[2021-07-06] MEDS: MULTIVITAMIN TABLET PO SCH (07:49)
[2021-07-06] MEDS: ASPIRIN 81MG CHEW TAB PO SCH (07:49)
[2021-07-06] MEDS: THIAMINE HCL 100 MG/ML 2ML VIAL IVP SCH (07:49)
[2021-07-06] MEDS: ENOXAPARIN SODIUM 30 MG/0.3 ML SQ SCH (07:51)
[2021-07-06 07:55] VITALS: BP 103/70
[2021-07-06 12:00] VITALS: BP 112/63
[2021-07-06 16:00] VITALS: BP 100/55
[2021-07-06] MEDS: ATORVASTATIN 40 MG TABLET PO SCH (20:16)
[2021-07-06 20:58] VITALS: BP 113/67
[2021-07-06 23:34] VITALS: BP 116/60
[2021-07-07 00:53] VITALS: BP 116/60
[2021-07-07] MEDS: CHLORHEXIDINE GLUCONATE 473 ML MOUTHWASH MM SCH ×2 (03:38→09:31)
[2021-07-07 03:50] VITALS: BP 117/80
[2021-07-07 04:54] VITALS: BP 117/80
[2021-07-07] MEDS: FOSPHENYTOIN SODIUM 100 MG in 0.9%NACL 50ML 50 ML IJ SCH (05:00)
[2021-07-07] MEDS: LEVETIRACETAM 1,500 MG in 0.9%NACL 100ML 100 ML IV SCH (05:52)
[2021-07-07 07:13] VITALS: BP 110/66
[2021-07-07] MEDS: MULTIVITAMIN TABLET PO SCH (09:29)
[2021-07-07] MEDS: FAMOTIDINE 20MG VIAL IV SCH (09:29)
[2021-07-07] MEDS: ASPIRIN 81MG CHEW TAB PO SCH (09:30)
[2021-07-07] MEDS: THIAMINE HCL 100 MG/ML 2ML VIAL IVP SCH (09:30)
[2021-07-07] MEDS: ENOXAPARIN SODIUM 30 MG/0.3 ML SQ SCH (09:30)
[2021-07-07 11:16] VITALS: BP 107/65
[2021-07-07] MEDS ORDERED: CLON1TAB12 PO (13:36)
[2021-07-07] MEDS ORDERED: PHENY100 PO (13:36)
[2021-07-07] MEDS ORDERED: ATOR40TA69 PO (13:36)
[2021-07-07] MEDS ORDERED: METO25 PO (13:36)
[2021-07-07] MEDS ORDERED: ASPI-1005 PO (13:36)
[2021-07-07] MEDS ORDERED: THIA100T91 PO (13:36)
[2021-07-07] MEDS ORDERED: LEVE750T10 PO (13:36)
[2021-07-07] MEDS ORDERED: PHENYTOIN SODIUM 100 MG ERCAP PO SCH (21:00)
[2021-07-07] MEDS ORDERED: LEVETIRACETAM 500 MG TABLET PO SCH (21:00)
[2021-07-07] MEDS ORDERED: METOPROLOL TARTRATE 25 MG TAB PO SCH (21:00)
[2021-07-08] MEDS ORDERED: THIAMINE HCL 100 MG TABLET PO SCH (09:00)
== END 2021-07-07 15:30 | disposition home or self-care (01) | DRG 216 ==
LOC: 4DH 13:21 → 2CV 06-20 10:21 → 2CH 06-20 18:30 → 2CV 06-23 14:38 → 2CH 06-24 17:46 → 2DH 07-03 05:30 → 4CH 07-03 18:45
PROVIDERS: ADMIT Internal Medicine; ATTEND Internal Medicine
PROC: 4A023N8 Measurement of Cardiac Sampling and Pressure, Bilateral, Percutaneous Approach (ICD-10-PCS; 2021-06-20)
PROC: 5A02210 Assistance with Cardiac Output using Balloon Pump, Continuous (ICD-10-PCS; 2021-06-20)
PROC: B2111ZZ Fluoroscopy of Multiple Coronary Arteries using Low Osmolar Contrast (ICD-10-PCS; 2021-06-20)
PROC: B41F1ZZ Fluoroscopy of Right Lower Extremity Arteries using Low Osmolar Contrast (ICD-10-PCS; 2021-06-20)
PROC: 5A1221Z Performance of Cardiac Output, Continuous (ICD-10-PCS; 2021-06-23)
PROC: 5A1955Z Respiratory Ventilation, Greater than 96 Consecutive Hours (ICD-10-PCS; 2021-06-23)
PROC: 0BH17EZ Insertion of Endotracheal Airway into Trachea, Via Natural or Artificial Opening (ICD-10-PCS; 2021-06-23)
PROC: 4A00X4Z Measurement of Central Nervous Electrical Activity, External Approach (ICD-10-PCS; 2021-06-23)
PROC: 02UG0JZ Supplement Mitral Valve with Synthetic Substitute, Open Approach (ICD-10-PCS; principal; 2021-06-23 10:54)
PROC: 02HV33Z Insertion of Infusion Device into Superior Vena Cava, Percutaneous Approach (ICD-10-PCS; 2021-07-02)
DX: I08.1 Rheumatic disorders of both mitral and tricuspid valves (principal); R57.0 Cardiogenic shock; I50.41 Acute combined systolic (congestive) and diastolic (congestive) heart failure; G93.40 Encephalopathy, unspecified; J98.11 Atelectasis; I25.10 Atherosclerotic heart disease of native coronary artery without angina pectoris; E78.5 Hyperlipidemia, unspecified; E78.00 Pure hypercholesterolemia, unspecified; F12.10 Cannabis abuse, uncomplicated; F14.10 Cocaine abuse, uncomplicated; F17.200 Nicotine dependence, unspecified, uncomplicated; F41.9 Anxiety disorder, unspecified; H55.00 Unspecified nystagmus; I11.0 Hypertensive heart disease with heart failure; J98.4 Other disorders of lung; I25.2 Old myocardial infarction; Z79.01 Long term (current) use of anticoagulants; Z79.02 Long term (current) use of antithrombotics/antiplatelets; Z79.82 Long term (current) use of aspirin; Z79.899 Other long term (current) drug therapy; Z95.2 Presence of prosthetic heart valve; Z95.1 Presence of aortocoronary bypass graft; Z91.19 Patient's noncompliance with other medical treatment and regimen; Z91.14 Patient's other noncompliance with medication regimen; Z83.3 Family history of diabetes mellitus; Z82.49 Family history of ischemic heart disease and other diseases of the circulatory system
CPT/HCPCS: 33967; 36200; 36415; 36600; 70450; 70496; 70498; 71045; 71270; 75716; 76882; 80048; 80053; 82140; 82435; 82550; 82607; 82746; 82803; 82947; 82948; 83605; 83735; 83880; 84100; 84132; 84145; 84295; 84443; 85018; 85025; 85027; 85347; 85610; 85651; 85730; 86140; 86850; 86900; 86901; 86923; 87040; 92610; 93005; 93313; 93318; 93461; 94002; 94003; 95822; 97039; 99156; 99157; A7048; C1751; C1769; C1894; G0378; J0171; J0282; J0610; J0690; J1200; J1630; J1644; J1650; J1815; J1940; J1953; J2001; J2060; J2250; J2405; J2704; J2720; J3010; J3411; J3475; J3480; J3490; J7030; J7040; J7050; J7060; P9045; Q2009; Q9967